=== PATIENT | female | born 1950 | race Caucasian/White ===

== ENCOUNTER 2019-10-02 06:45 | Emergency (ER) | payer MEDICARE, BC, SELFPAY ==
--- NOTE | 2019-10-02 06:50 | ED_ITS ---
HPI - General Adult General: Chief complaint: Syncope Stated complaint: SYNCOPE, AND N/V Time Seen by Provider: 10/02/19 06:49 History of Present Illness: HPI narrative: 69-year-old female presents to the emergency room with complaints of syncope with nausea and vomiting. She is also had some loose stools. She denies any fever she has been a little bit short of breath but is been typical for her and has not changed significantly denies any chest pain denies any dysuria urgency or frequency no hematochezia melena hematemesis coffee-ground emesis patient is a history of amyloidosis sees a specialist at [facility]. She had a syncopal episode yesterday. Has no known history of coronary artery disease or diabetes. Onset (ago): day(s) Severity: moderate Associated symptoms: Reports dyspnea; Deny chest pain, malaise, nausea, rash or vomiting Review of Systems Const: Denies: fever, chills, body aches, change in appetite, fatigue or malaise ENMT: Denies: throat pain, ear pain, nasal discharge or nasal congestion Card: Reports: shortness of breath when lying down; Denies: chest pain, edema or shortness of breath on exertion Resp: Reports: shortness of breath; Denies: productive cough or non-productive cough GI: Denies: abdominal pain, nausea, vomiting, vomiting blood, coffee grounds in vomit, diarrhea, constipation, bloating, blood in stool or black tarry stool : Denies: flank pain, difficulty urinating, painful urination, urinary frequency or urinary urgency Skin/Breast: Denies: rash or itching PFSH ED PFSH: Social History Smoking and tobacco status: never smoked Physical Exam Const: COMMON NORMALS: no apparent distress GENERAL APPEARANCE: cooperative and comfortable ORIENTATION/CONSCIOUSNESS: Yes awake, Yes oriented to person, Yes oriented to place and Yes oriented to time HENMT: COMMON NORMALS: normocephalic, head/scalp atraumatic, hearing grossly normal bilaterally, external ears normal, EAC's normal, TM's normal bilaterally, nasal mucous membranes and turbinates normal, moist oral mucous membranes and oropharynx normal HEAD & SCALP: normocephalic and atraumatic NOSE: nasal mucous membranes and turbinates normal EXTERNAL EAR: Yes external ears normal EXTERNAL AUDITORY CANAL: EAC's normal TYMPANIC MEMBRANE: TM's normal bilaterally Eye: COMMON NORMALS: PERRL, EOMs intact bilaterally, conjunctivae normal and no scleral icterus CONJUNCTIVA: Yes conjunctivae normal PUPIL: Yes PERRL Neck/C-Spine: COMMON NORMALS: full ROM, no lymphadenopathy, supple and no JVD Lymph: LYMPHATIC: no lymphadenopathy noted and no lymphedema noted Resp: COMMON NORMALS: normal respiratory effort, no retractions, no use of accessory muscles and clear to auscultation bilaterally AUSCULTATION: clear to auscultation bilaterally Cardio: COMMON NORMALS: no JVD, regular rate, regular rhythm and no murmurs RATE: regular rate RHYTHM: regular rhythm GI: COMMON NORMALS: soft to palpation and no hepatosplenomegaly AUSCULTATION: Yes normoactive bowel sounds PALPATION: Yes soft, No tender, No guarding and Yes no hepatosplenomegaly Extremity: COMMON NORMALS: normal to inspection, normal capillary refill, no clubbing, cyanosis or edema, no calf tenderness and no pedal edema Neuro: SENSORIUM/ORIENTATION: Yes oriented to person, Yes oriented to place and Yes oriented to time Skin: COMMON NORMALS: no rashes or lesions noted GENERAL SKIN EXAM: no rashes or lesions noted Course ED course: Reviewed findings with the patient. She denied having any chest pain during any of these episodes. She has had this before in the past. She does have some mild amyloidosis with fluids she felt much better will go ahead and discharge her home follow-up with her primary care doctor she has any worsening problems or recurrence return to the emergency room. Vital Signs: Vital signs: Vital Signs Temperature 97.7 F 10/02/19 08:43 Pulse Rate 76 10/02/19 08:43 Respiratory Rate 20 H 10/02/19 08:43 Blood Pressure 91/56 10/02/19 08:43 Pulse Oximetry 96 10/02/19 08:43 MDM - General Adult Lab Data: Labs: Lab Results 10/02/19 10/02/19 10/02/19 Range/Units 06:54 06:54 06:54 WBC 6.9 (4.0-10.0) 10^3/ uL RBC 4.47 (4.1-5.3) 10^6/u L Hgb 13.0 (11.5-15.3) g/dL Hct 38.6 (37.0-47.0) % MCV 86.4 (81-99) fL MCH 29.1 (28.0-34.0) pg MCHC 33.7 (30.0-36.0) g/dL RDW 14.6 (12.1-15.1) % Plt Count 150 (130-400) 10^3/c mm MPV 9.6 (7.4-10.4) fL Neut % (Auto) 67.1 % Lymph % (Auto) 23.2 % [place] % (Auto) 7.4 % Eos % (Auto) 1.9 % Baso % (Auto) 0.1 % Neut # (Auto) 4.6 (1.8-7.7) 10^3/u L Lymph # (Auto) 1.6 (0.8-4.8) 10^3/u L [place] # (Auto) 0.5 (0.2-0.9) 10^3/u L Eos # (Auto) 0.1 (0.0-0.8) 10^3/u L Baso # (Auto) 0.0 (0.0-0.1) 10^3/u L Nucleated RBC % (a uto) 0 % Nucleated RBCs # 0.0 /100WBC Sodium 138 (136-145) mmol/L Potassium 4.6 (3.5-5.1) mmol/L Chloride 101 (98-107) mmol/L Carbon Dioxide 27 (22-29) mmol/L Anion Gap 14.6 (5-19) BUN 14 (8-23) mg/dL Creatinine 1.1 H (0.5-0.9) mg/dL GFR Calculation 49.2 L (90-130) mL/min Glucose 124 H (65-115) mg/dL Calcium 9.3 (8.5-10.5) mg/dL Total Bilirubin 0.5 (0.15-1.2) mg/dL AST 29 (0-32) U/L ALT 17 (0-33) U/L Alkaline Phosphata se 88 (35-105) IU/L Total Protein 6.9 (6.6-8.7) g/dL Albumin 3.6 (3.5-5.2) g/dL Globulin 3.3 (1.3-4.6) g/dL Urine Color (Yellow) Urine Appearance (CLEAR) Urine pH (5-7) Ur Specific Gravit y (1.005-1.030) Urine Protein (Negative) Urine Glucose (UA) (Normal) Urine Ketones (Negative) Urine Occult Blood (Negative) Urine Nitrate (Negative) Urine Bilirubin (NEGATIVE) Urine Urobilinogen (Negative) mg/dL Ur Leukocyte Lin ase (Negative) Serum Ketones Negative (Negative) 10/02/19 Range/Units 07:54 WBC (4.0-10.0) 10^3/ uL RBC (4.1-5.3) 10^6/u L Hgb (11.5-15.3) g/dL Hct (37.0-47.0) % MCV (81-99) fL MCH (28.0-34.0) pg MCHC (30.0-36.0) g/dL RDW (12.1-15.1) % Plt Count (130-400) 10^3/c mm MPV (7.4-10.4) fL Neut % (Auto) % Lymph % (Auto) % [place] % (Auto) % Eos % (Auto) % Baso % (Auto) % Neut # (Auto) (1.8-7.7) 10^3/u L Lymph # (Auto) (0.8-4.8) 10^3/u L [place] # (Auto) (0.2-0.9) 10^3/u L Eos # (Auto) (0.0-0.8) 10^3/u L Baso # (Auto) (0.0-0.1) 10^3/u L Nucleated RBC % (a uto) % Nucleated RBCs # /100WBC Sodium (136-145) mmol/L Potassium (3.5-5.1) mmol/L Chloride (98-107) mmol/L Carbon Dioxide (22-29) mmol/L Anion Gap (5-19) BUN (8-23) mg/dL Creatinine (0.5-0.9) mg/dL GFR Calculation (90-130) mL/min Glucose (65-115) mg/dL Calcium (8.5-10.5) mg/dL Total Bilirubin (0.15-1.2) mg/dL AST (0-32) U/L ALT (0-33) U/L Alkaline Phosphata se (35-105) IU/L Total Protein (6.6-8.7) g/dL Albumin (3.5-5.2) g/dL Globulin (1.3-4.6) g/dL Urine Color Yellow (Yellow) Urine Appearance Clear (CLEAR) Urine pH 5.0 (5-7) Ur Specific Gravit y 1.015 (1.005-1.030) Urine Protein Neg (Negative) Urine Glucose (UA) Norm (Normal) Urine Ketones Negative (Negative) Urine Occult Blood Neg (Negative) Urine Nitrate Negative (Negative) Urine Bilirubin Neg (NEGATIVE) Urine Urobilinogen Norm (Negative) mg/dL Ur Leukocyte Lin ase Negative (Negative) Serum Ketones (Negative) Discharge Plan Discharge Patient Disposition: Home, Self-Care Clinical Impression: Vasovagal syncope, Dehydration, mild, Amyloidosis Condition: Stable Prescriptions: No Action spironolactone 25 mg Tablet 25 mg PO DAILY RF: 0 Lasix 20 mg Tablet 20 mg PO DAILY RF: 0 Prilosec OTC 20 mg Tablet,Delayed Release (Dr/Ec) 20 mg PO DAILY RF: 0 Zyrtec 10 mg Capsule 10 mg PO DAILY RF: 0 levothyroxine 100 mcg Capsule 100 mcg PO DAILY RF: 0 Referrals: Uriel Joseph MD [Family Provider] - Discharge Diet: Advance as tolerated Discharge Activity: Increase activity as tolerated Activity Restrictions/Additional Instructions: Follow-up with your primary care doctor early next week return if has worsening problems. 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
[2019-10-02 06:54] VITALS: BP 124/79; PULSE 109; RESP 18; O2SAT 96; BMI 27.3
--- NOTE | 2019-10-02 06:54 | PC.NURSE ---
EKG done at 0650 and shown to ER doctor
--- NOTE | 2019-10-02 06:58 | ECG_ITS ---
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 [email or web address]
[2019-10-02 07:07] LABS: Basophils % 0.1 %; Eosinophils # 0.1 10^3/uL (0.0-0.8); Eosinophils % 1.9 %; Hematocrit 38.6 % (37.0-47.0); Lymphocytes # 1.6 10^3/uL (0.8-4.8); Lymphocytes % 23.2 %; Mean Corpuscular HGB Conc 33.7 g/dL (30.0-36.0); Mean Corpuscular Hemoglobin 29.1 pg (28.0-34.0); Mean Corpuscular Volume 86.4 fL (81-99); Mean Platelet Volume 9.6 fL (7.4-10.4); Monocytes # 0.5 10^3/uL (0.2-0.9); Monocytes % 7.4 %; Neutrophils # 4.6 10^3/uL (1.8-7.7); Neutrophils % 67.1 %; Nucleated Red Blood Cells % 0 %; Platelet Count 150 10^3/cmm (130-400); Red Blood Count 4.47 10^6/uL (4.1-5.3); Red Cell Distribution Width 14.6 % (12.1-15.1); White Blood Count 6.9 10^3/uL (4.0-10.0)
[2019-10-02 07:15] LABS: Alanine Aminotransferase 17 U/L (0-33); Albumin Level 3.6 g/dL (3.5-5.2); Alkaline Phosphatase 88 IU/L (35-105); Anion Gap 14.6 (5-19); Aspartate Amino Transferase 29 U/L (0-32); Blood Urea Nitrogen 14 mg/dL (8-23); Calcium 9.3 mg/dL (8.5-10.5); Carbon Dioxide 27 mmol/L (22-29); Chloride 101 mmol/L (98-107); Creatinine Clr Calc Pharmacy 54.1007; Globulin 3.3 g/dL (1.3-4.6); Glomerular Filtration Rate 49.2 mL/min (90-130); Glucose 124 mg/dL (65-115); Potassium 4.6 mmol/L (3.5-5.1); Sodium 138 mmol/L (136-145); Total Bilirubin 0.5 mg/dL (0.15-1.2); Total Protein 6.9 g/dL (6.6-8.7)
[2019-10-02] MEDS: sodium chloride 0.9% 1,000 ML 999 ML IV (07:20)
[2019-10-02] MEDS: sodium chlor 0.9% + KCl 20 mEq 20 MEQ/1,000 ML BAG 125 MEQ IV (07:22)
[2019-10-02 08:09] LABS: Ketone (Acetest) Serum Negative (Negative)
[2019-10-02 08:18] LABS: Add Urine Microscopic? NO
[2019-10-02 08:20] LABS: Bilirubin Urine Neg (NEGATIVE); Blood Urine Neg (Negative); Glucose Urine UA Norm (Normal); Ketones Urine Negative (Negative); Leukocyte Esterase Urine Negative (Negative); Nitrate Urine Negative (Negative); Protein Urine Neg (Negative); Specific Gravity, Urine 1.015 (1.005-1.030); Urine Appearance Clear (CLEAR); Urine Color Yellow (Yellow); Urobilinogen Urine Norm (Negative)
[2019-10-02 08:43] VITALS: BP 91/56; PULSE 76; RESP 20; TEMP 36.5; O2SAT 96
== END 2019-10-02 08:46 | disposition home or self-care (01) ==
PROVIDERS: Emergency Provider Family Medicine; Family Provider Family Medicine
DX: R55 Syncope and collapse (principal); E86.0 Dehydration; E85.9 Amyloidosis, unspecified
CPT/HCPCS: 80053; 81003; 82009; 85025; 93005; 96360; 96365; 96366; 99282; 99284; J7030

== ENCOUNTER 2020-01-30 01:02 | Emergency (ER) | payer MEDICARE, BC, SELFPAY ==
[2020-01-30 01:17] VITALS: BP 148/87; PULSE 89; RESP 18; O2SAT 97; BMI 25.1
[2020-01-30 01:31] LABS: Add Urine Microscopic? NO
[2020-01-30 01:42] LABS: Bilirubin Urine Neg (NEGATIVE); Blood Urine Neg (Negative); Glucose Urine UA Norm (Normal); Ketones Urine Negative (Negative); Leukocyte Esterase Urine Negative (Negative); Nitrate Urine Negative (Negative); Protein Urine Neg (Negative); Urine Appearance Clear (CLEAR); Urine Color Yellow (Yellow); Urobilinogen Urine Norm (Negative); pH Urine 5 (5-7)
[2020-01-30 01:49] LABS: Alanine Aminotransferase 15 U/L (0-33); Albumin Level 4.1 g/dL (3.5-5.2); Alkaline Phosphatase 76 IU/L (35-105); Aspartate Amino Transferase 26 U/L (0-32); Blood Urea Nitrogen 8 mg/dL (8-23); Calcium 9.1 mg/dL (8.5-10.5); Carbon Dioxide 26 mmol/L (22-29); Chloride 97 mmol/L (98-107); Globulin 2.6 g/dL (1.3-4.6); Glomerular Filtration Rate 71.1 mL/min (90-130); Glucose 114 mg/dL (65-115); Osmolality Calculated 277 mOsm/kg (285-295); Sodium 135 mmol/L (136-145); Total Bilirubin 0.5 mg/dL (0.15-1.2); Total Protein 6.7 g/dL (6.6-8.7)
[2020-01-30 01:55] LABS: Basophils % 0.5 %; Eosinophils % 0.7 %; Hematocrit 37.4 % (37.0-47.0); Hemoglobin 12.4 g/dL (11.5-15.3); Lymphocytes # 1.7 10^3/uL (0.8-4.8); Lymphocytes % 30.3 %; Mean Corpuscular HGB Conc 33.2 g/dL (30.0-36.0); Mean Corpuscular Hemoglobin 28.9 pg (28.0-34.0); Mean Corpuscular Volume 87.2 fL (81-99); Mean Platelet Volume 9.6 fL (7.4-10.4); Monocytes # 0.3 10^3/uL (0.2-0.9); Monocytes % 5.5 %; Neutrophils # 3.6 10^3/uL (1.8-7.7); Neutrophils % 62.6 %; Nucleated Red Blood Cells % 0 %; Platelet Count 178 10^3/cmm (130-400); Red Blood Count 4.29 10^6/uL (4.1-5.3); Red Cell Distribution Width 13.7 % (12.1-15.1); White Blood Count 5.7 10^3/uL (4.0-10.0)
[2020-01-30] MEDS: sodium chloride 0.9% 1,000 ML 999 ML IV ×2 (03:13→04:24)
[2020-01-30] MEDS: ondansetron 2 mg/ML SDV 2 mL 8 MG IVP (03:13)
[2020-01-30] MEDS: famotidine 20 mg/2 mL INJ IVP (03:13)
[2020-01-30 04:49] VITALS: BP 136/84; PULSE 16; RESP 78; O2SAT 96
[2020-01-30 04:51] VITALS: BP 118/62; PULSE 79; RESP 16; TEMP -8.8; TEMP 16; O2SAT 97
--- NOTE | 2020-01-31 02:23 | ED_ITS ---
HPI - Nausea/Vomiting/Diarrhea General: Chief complaint: Nausea/Vomiting/Diarrhea Stated complaint: N/V X 2 DAYS Time Seen by Provider: 01/30/20 02:41 History of Present Illness: HPI Narrative: 69-year-old female with a history of amyloidosis. She has been to [facility] for appointments at the [facility], and is on her way home to [place]. She is experienced multiple episodes of vomiting and diarrhea. She had multiple testing in [place] incl uding a colonoscopy and EGD. She is having no belly pain. No fever. She states I need a bag of fluid . MD elicited complaint: nausea, vomiting and diarrhea Onset (ago): hour(s) Description of vomiting: watery Associated nausea: Yes Associated abdominal pain: No Location of pain: None Radiation: other Exacerbating factors: eating Relieving factors: none Associated symtoms: Reports decreased urine output, dizziness and nausea; Denies altered mental status, anxiety, change in vision, chest pain, dysuria, epistaxis or fevers/chills Review of Systems Const: Denies: fever(s) or chills Eyes: Denies: change in vision or blurry vision ENMT: Denies: swelling of lips/tongue, change in hearing, epistaxis, post nasal drip or sinus pain Card: Denies: chest pain Resp: Denies: dyspnea, productive cough, non-productive cough or wheezing GI: Reports: nausea : Denies: dysuria, urinary frequency, urinary urgency or hematuria Musc: Denies: neck pain, back pain, joint redness or joint warmth Skin/Breast: Denies: rash, pruritus or erythema Neuro: Reports: dizziness Psych: Denies: anxiety PFSH ED PFSH: Social History Smoking and tobacco status: never smoked Physical Exam Const: EXAM LIMITATIONS: no altered mental status GENERAL APPEARANCE: well developed ORIENTATION/CONSCIOUSNESS: Yes oriented to person, Yes oriented to place and Yes oriented to time HENMT: COMMON NORMALS: normocephalic, external ears normal and Normal external nose present HEAD & SCALP: normocephalic FACE & SINUS: normal facial exam NOSE: Normal external nose present and No nasal discharge present EXTERNAL EAR: Yes external ears normal MOUTH: tongue normal TEETH & GINGIVA: no abnormal tooth and associated gingiva THROAT: posterior oropharynx normal; no peritonsillar mass Eye: COMMON NORMALS: Equal, round and reactive pupils present, EOMs intact bilaterally and conjunctivae normal EYELID: eyelids normal CONJUNCTIVA: Yes conjunctivae normal PUPIL: Yes Equal, round and reactive pupils present Neck/C-Spine: COMMON NORMALS: full ROM GENERAL: No tracheal deviation Chest: COMMONS NORMALS: normal inspection of the chest CHEST: No tenderness Resp: COMMON NORMALS: clear to auscultation bilaterally EFFORT & INSPECTION: No tachypneic, No respiratory distress, No retractions, No uses accessory muscles and No tracheal deviation AUSCULTATION: clear to auscultation bilaterally, no rhonchi, no wheezes and lung sounds not diminished Cardio: COMMON NORMALS: regular rate and regular rhythm RATE: regular rate RHYTHM: regular rhythm HEART SOUNDS: no murmurs PERIPHERAL PULSES: radial pulses present GI: INSPECTION: No abdominal distension AUSCULTATION: No Hyperactive bowel sounds present and No Hypoactive bowel sounds present PALPATION: No Guarding due to palpation present (GI) and No Rigid due to palpation PERCUSSION: no dullness to percussion and no tympanic to percussion Neuro: SENSORIUM/ORIENTATION: Yes oriented to person, Yes oriented to place and Yes oriented to time Psych: COMMON NORMALS: mental status grossly normal Skin: COMMON NORMALS: no rashes or lesions noted GENERAL SKIN EXAM: no rashes or lesions noted Course Vital Signs: Vital signs: Vital Signs Temperature 16 F L 01/30/20 04:51 Pulse Rate 79 01/30/20 04:51 Respiratory Rate 16 01/30/20 04:51 Blood Pressure 118/62 01/30/20 04:51 Pulse Oximetry 97 01/30/20 04:51 MDM - Nausea/Vomiting/Diarrhea MDM Narrative: Medical decision making narrative: Patient received 2 L of fluid and antiemetics in the ER. She felt significantly better. Her laboratory was not overly abnormal. She did appear clinically dehydrated. She will go home on Zofran for nausea and close follow-up with her physician. Lab Data: Labs: Lab Results 01/30/20 01/30/20 01/30/20 Range/Units 01:10 01:25 01:25 WBC 5.7 (4.0-10.0) 10^3/ uL RBC 4.29 (4.1-5.3) 10^6/u L Hgb 12.4 (11.5-15.3) g/dL Hct 37.4 (37.0-47.0) % MCV 87.2 (81-99) fL MCH 28.9 (28.0-34.0) pg MCHC 33.2 (30.0-36.0) g/dL RDW 13.7 (12.1-15.1) % Plt Count 178 (130-400) 10^3/c mm MPV 9.6 (7.4-10.4) fL Neut % (Auto) 62.6 % Lymph % (Auto) 30.3 % [place] % (Auto) 5.5 % Eos % (Auto) 0.7 % Baso % (Auto) 0.5 % Neut # (Auto) 3.6 (1.8-7.7) 10^3/u L Lymph # (Auto) 1.7 (0.8-4.8) 10^3/u L [place] # (Auto) 0.3 (0.2-0.9) 10^3/u L Eos # (Auto) 0.0 (0.0-0.8) 10^3/u L Baso # (Auto) 0.0 (0.0-0.1) 10^3/u L Nucleated RBC % (a uto) 0 % Nucleated RBCs # 0.0 /100WBC Sodium 135 L (136-145) mmol/L Potassium 4.0 (3.5-5.1) mmol/L Chloride 97 L (98-107) mmol/L Carbon Dioxide 26 (22-29) mmol/L Anion Gap 16.0 (5-19) BUN 8 (8-23) mg/dL Creatinine 0.8 (0.5-0.9) mg/dL GFR Calculation 71.1 L (90-130) mL/min Glucose 114 (65-115) mg/dL Calculated Osmolal ity 277 L (285-295) mOsm/k g Calcium 9.1 (8.5-10.5) mg/dL Total Bilirubin 0.5 (0.15-1.2) mg/dL AST 26 (0-32) U/L ALT 15 (0-33) U/L Alkaline Phosphata se 76 (35-105) IU/L Total Protein 6.7 (6.6-8.7) g/dL Albumin 4.1 (3.5-5.2) g/dL Globulin 2.6 (1.3-4.6) g/dL Urine Color Yellow (Yellow) Urine Appearance Clear (CLEAR) Urine pH 5 (5-7) Ur Specific Gravit y 1.010 (1.005-1.030) Urine Protein Neg (Negative) Urine Glucose (UA) Norm (Normal) Urine Ketones Negative (Negative) Urine Blood Neg (Negative) Urine Nitrate Negative (Negative) Urine Bilirubin Neg (NEGATIVE) Urine Urobilinogen Norm (Negative) mg/dL Ur Leukocyte Lin ase Negative (Negative) Discharge Plan Discharge Patient Disposition: Home, Self-Care Clinical Impression: Vomiting Qualifiers: Vomiting type: unspecified Vomiting Intractability: intractable Nausea presence: with nausea Qualified Code(s): R11.2 - Nausea with vomiting, unspecified Condition: Stable Prescriptions: New Zofran 4 mg tablet 4 mg PO Q6H PRN (Reason: nausea and vomiting) Qty: 10 RF: 0 No Action spironolactone 25 mg Tablet 25 mg PO DAILY RF: 0 Lasix 20 mg Tablet 20 mg PO DAILY RF: 0 Prilosec OTC 20 mg Tablet,Delayed Release (Dr/Ec) 20 mg PO DAILY RF: 0 Zyrtec 10 mg Capsule 10 mg PO DAILY RF: 0 levothyroxine 100 mcg Capsule 100 mcg PO DAILY RF: 0 Discharge Orders: Discharge Order (Routine); Ordered 01/30/20 Ordered By: Carlitos King Referrals: Uriel Joseph MD [Primary Care Provider] - 4-7 days Discharge Diet: Advance as tolerated and Clear Liquid Discharge Activity: Increase activity as tolerated Patient Instructions: Acute Nausea and Vomiting (ED) Activity Restrictions/Additional Instructions: Return for fever, increasing belly pain, vomiting liquids or medications despite treatment, other concerning symptoms. 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
== END 2020-01-30 05:01 | disposition home or self-care (01) ==
PROVIDERS: Emergency Provider Emergency Medicine; PCP Family Medicine
DX: R11.2 Nausea with vomiting, unspecified (principal)
CPT/HCPCS: 12345; 80053; 81003; 85025; 96361; 96374; 96375; 99283; A9270; J2405; J3490; J7030

== ENCOUNTER 2020-08-06 04:08 | Inpatient (IN) | payer MEDICARE, BC, SELFPAY ==
[2020-08-06] VITALS (16 sets, daily range): BP systolic 126–166; BP diastolic 75–123; PULSE 73–102; RESP 13–27; TEMP 36.3–37.2; O2SAT 91–100; BMI 25.0
--- NOTE | 2020-08-06 04:46 | PC.NURSE ---
Pt tossing back and forth in the bed. Unable to stay still secondary to abdominal pain and I need to help per pt
--- NOTE | 2020-08-06 05:00 | XRR_ITS ---
PROCEDURE INFORMATION: Exam: XR Chest, 1 View Exam date and time: 08/06/2020 5:04 AM Age: 70 years old Clinical indication: Patient HX: Possible medication reaction. Intractable n/v. ; Additional info: Vomiting TECHNIQUE: Imaging protocol: XR of the chest Views: 1 view. COMPARISON: No relevant prior studies available. FINDINGS: Lungs: Few infiltrates are seen in the right base. No consolidation. Pleural space: Unremarkable. No pleural effusion. No pneumothorax. Heart/Mediastinum: Cardiomegaly is present. Bones/joints: Unremarkable. XR/XR chest 1V portable [id number] IMPRESSION: Cardiomegaly is present. Few infiltrates are seen in the right base.
[2020-08-06] MEDS: sodium chloride 0.9% 1,000 ML 999 ML IV ×3 (05:14→08:06)
[2020-08-06] MEDS: ondansetron 2 mg/ML SDV 2 mL 8 MG IVP (05:15)
[2020-08-06 05:19] LABS: Basophils % 0.3 %; Eosinophils # 0.1 10^3/uL (0.0-0.8); Eosinophils % 0.5 %; Hematocrit 40.4 % (37.0-47.0); Hemoglobin 13.6 g/dL (11.5-15.3); Lymphocytes # 1.6 10^3/uL (0.8-4.8); Lymphocytes % 17.5 %; Mean Corpuscular HGB Conc 33.7 g/dL (30.0-36.0); Mean Corpuscular Hemoglobin 29.3 pg (28.0-34.0); Mean Corpuscular Volume 87.1 fL (81-99); Mean Platelet Volume 10.4 fL (7.4-10.4); Monocytes # 0.5 10^3/uL (0.2-0.9); Monocytes % 5.3 %; Neutrophils # 6.99 10^3/uL (1.8-7.7); Neutrophils % 76.1 %; Nucleated Red Blood Cells % 0 %; Platelet Count 160 10^3/cmm (130-400); Red Blood Count 4.64 10^6/uL (4.1-5.3); Red Cell Distribution Width 15.1 % (12.1-15.1); White Blood Count 9.2 10^3/uL (4.0-10.0)
--- NOTE | 2020-08-06 05:20 | PC.NURSE ---
pt to [facility] unable to void. Daughter at bedside. Helping pt relax and control impulsive behavior
[2020-08-06 05:23] LABS: Troponin(5th) Baseline 28 ng/L (0-10)
--- NOTE | 2020-08-06 05:25 | ED_ITS ---
Documented by User: Tete Marley 08/06/20 05:30 HPI - Nausea/Vomiting/Diarrhea General: Chief complaint: Nausea/Vomiting/Diarrhea Stated complaint: n/v/ allergic reaction Time Seen by Provider: 08/06/20 04:55 Source: patient, family and EMS Mode of arrival: EMS Limitations: no limitations History of Present Illness: HPI Narrative: Chrissy is a very nice 70-year-old female who comes in with a complaint of nausea and vomiting. Patient's daughter is present who gives the most history. She states her mother has a history of amyloidosis and has to get a [place] shot for this once a week out of [place]. She is had this in the past but did not tolerate it well and so she had to stop. They are trying this medicine again but she is having the same reaction that she is had before but this time more severe. Patient has had numerous episodes of vomiting to the point she is now just dry heaving. She has not had any diarrhea. She does have abdominal pain which she describes mostly as just diffuse discomfort and nausea. She denies headache, neck pain, chest pain, shortness of breath, back pain, flank pain, urinary symptoms, extremity pain or skin rashes. The patient's daughter says she has had this symptoms numerous times in the past. She states she is had to come here to the ER to get IV fluids, nausea medication before she can feel relief and is ready to go home. They have not tried anything at home for this and they are unaware of anything that makes her symptoms better or worse. Associated nausea: Yes Associated symtoms: Reports nausea; Denies change in vision, chest pain, diaphoresis, dizziness, dysuria, fatigue, headache(s), malaise, palpitations or syncope Review of Systems Const: Denies: fever(s), chills, body aches, fatigue, malaise or diaphoresis Eyes: Denies: change in vision, blurry vision, photophobia, eye discomfort, eye discharge, eye redness or yellow eyes ENMT: Denies: throat pain, odynophagia, hoarseness, swelling of lips/tongue, ear or mastoid pain, ear discharge, change in hearing or nasal discharge Card: Denies: chest pain, palpitations, irregular heart rhythm, edema, lightheadedness, syncope, pre-syncope, dyspnea on exertion or orthopnea Resp: Denies: dyspnea, productive cough, non-productive cough, wheezing, hemoptysis or chest congestion GI: Reports: abdominal pain, nausea and vomiting; Denies: hematemesis, coffee ground emesis, heartburn, diarrhea, constipation, GI cramping, hematochezia or melena : Denies: flank pain, dysuria, urinary frequency, urinary urgency or hematuria Musc: Denies: neck pain, back pain, extremity pain, extremity swelling, joint pain, joint swelling, joint redness, joint warmth or joint stiffness Skin/Breast: Denies: rash, pruritus, erythema, skin pain or skin tenderness Neuro: Denies: headache(s), numbness in extremities, weakness in extremities, sensory changes, lack of coordination, difficulty walking, dizziness, vertigo, confusion, Slurred speech present or seizure-like activity Jesus/Lymph: Denies: easy bruising, easy bleeding, petechiae, purpura or enlarged lymph nodes All/Imm: Denies: urticaria, throat swelling, tongue swelling, facial swelling or acute wheezing PFSH ED PFSH: Medical History Amyloidosis GERD (gastroesophageal reflux disease) Hypertension Hypothyroidism Surgical History Hx of cholecystectomy Family History Sister Amyloidosis Social History Smoking and tobacco status: never smoked Physical Exam Const: COMMON NORMALS: no acute distress, patient oriented x3, no limitations and alert GENERAL APPEARANCE: cooperative HENMT: COMMON NORMALS: normocephalic, atraumatic, external ears normal, EAC's normal and Normal external nose present HEAD & SCALP: normal to inspection, normocephalic and atraumatic FACE & SINUS: normal facial exam and face symmetric NOSE: Normal external nose present and Normal nares present EXTERNAL EAR: Yes external ears normal EXTERNAL AUDITORY CANAL: EAC's normal MOUTH: Normal oral and palatal mucosa present, lip normal and tongue normal Eye: COMMON NORMALS: Equal, round and reactive pupils present and conjunctivae normal GENERAL EYE: appearance normal, both eyes and all related structures ALIGNMENT: Yes alignment normal PERIORBITAL: periorbital findings normal EYELID: eyelids normal CONJUNCTIVA: Yes conjunctivae normal SCLERA: sclerae normal PUPIL: Yes Equal, round and reactive pupils present Neck/C-Spine: COMMON NORMALS: full ROM, no lymphadenopathy, supple, no meningeal signs and no JVD GENERAL: Yes normal visual inspection and Yes trachea midline Chest: COMMONS NORMALS: normal inspection of the chest and normal palpation of entire chest wall Resp: COMMON NORMALS: normal respiratory effort, No retractions, No use of accessory muscles and clear to auscultation bilaterally EFFORT & INSPECTION: Yes able to speak in complete sentences and Yes symmetric chest movement AUSCULTATION: clear to auscultation bilaterally, no crackles, no rales, no rhonchi and no wheezes Cardio: COMMON NORMALS: no JVD, regular rate, regular rhythm, S1 normal heart sound present and S2 normal heart sound present RATE: regular rate RHYTHM: regular rhythm HEART SOUNDS: S1 normal heart sound present, S2 normal heart sound present, no click, no gallops, no murmurs and no rubs GI: COMMON NORMALS: Soft to palpation and No hepatosplenomegaly present PALPATION: Yes Soft to palpation, No Tenderness to palpation present (GI), No Guarding due to palpation present (GI), No Rigid due to palpation, Yes No hepatosplenomegaly present, No Hernia present, No Palpable mass present and No Pulsatile mass present : COMMON NORMALS: Yes no CVA tenderness BLADDER/KIDNEY EXAM: Yes no CVA tenderness EXTERNAL FEMALE EXAM: No Hernia present Back/Pelvis: COMMON NORMALS: no CVA tenderness, thoracic and lumbar spine normal to inspection, no thoracic nor lumbar tenderness and thoraco-lumbar ROM normal Extremity: COMMON NORMALS: normal to inspection, full ROM, capillary refill normal, no joint enlargement, no clubbing, cyanosis or edema and no calf tenderness Neuro: COMMON NORMALS: patient oriented x3, CN's II-XII intact bilaterally, moves all extremities, no focal motor deficits and no sensory deficits noted SENSORIUM/ORIENTATION: Yes alert MENINGEAL SIGNS: Yes no meningeal signs SPEECH: speech normal Psych: COMMON NORMALS: mental status grossly normal, Normal thought process present, cooperative, normal affect, speech normal and activity/motor behavior normal SPEECH: Yes normal speech THOUGHT PROCESS: Normal thought process present Skin: COMMON NORMALS: no rashes or lesions noted, turgor normal, no jaundice, no petechiae and no mottling GENERAL SKIN EXAM: no rashes or lesions noted and turgor normal Course Vital Signs: Vital signs: Vital Signs Temperature 98.1 F 08/06/20 12:00 Pulse Rate 80 08/06/20 12:00 Respiratory Rate 18 08/06/20 12:00 Blood Pressure 149/78 08/06/20 12:00 Pulse Oximetry 96 08/06/20 12:00 MDM - Nausea/Vomiting/Diarrhea Lab Data: Labs: Lab Results 08/06/20 08/06/20 08/06/20 Range/Units 04:25 04:25 04:25 WBC 9.2 (4.0-10.0) 10^3/ uL RBC 4.64 (4.1-5.3) 10^6/u L Hgb 13.6 (11.5-15.3) g/dL Hct 40.4 (37.0-47.0) % MCV 87.1 (81-99) fL MCH 29.3 (28.0-34.0) pg MCHC 33.7 (30.0-36.0) g/dL RDW 15.1 (12.1-15.1) % Plt Count 160 (130-400) 10^3/c mm MPV 10.4 (7.4-10.4) fL Neut % (Auto) 76.1 % Lymph % (Auto) 17.5 % Gray % (Auto) 5.3 % Eos % (Auto) 0.5 % Baso % (Auto) 0.3 % Neut # (Auto) 6.99 (1.8-7.7) 10^3/u L Lymph # (Auto) 1.6 (0.8-4.8) 10^3/u L Gray # (Auto) 0.5 (0.2-0.9) 10^3/u L Eos # (Auto) 0.1 (0.0-0.8) 10^3/u L Baso # (Auto) 0.0 (0.0-0.1) 10^3/u L Nucleated RBC % (a uto) 0 % Nucleated RBCs # 0.0 /100WBC Specimen Type Sample Site ABG pH (7.35-7.45) ABG pCO2 (35-45) mmHg ABG pO2 (80.0-100.0) mmH g ABG HCO3 (22-26) mmol/L ABG O2 Saturation ABG Base Excess (-2.0-2.0) mmol/ L Akil Test A-a O2 Gradient (5-10) mmHg Hematocrit (37-47) % Hgb O2 Saturation (95-100) % Carboxyhemoglobin (0.4-20.1) %THgb Methemoglobin (0.4-1.5) % Total Hemoglobin (12-16) g/dL Ionized Calcium (1.1-1.4) mmol/L O2 Delivery Device O2 Liters/Min % FiO2 % [employer] ID Sodium 137 (136-145) mmol/L Potassium 3.5 (3.5-5.1) mmol/L Chloride 100 (98-107) mmol/L Carbon Dioxide 21 L (22-29) mmol/L Anion Gap 19.5 H (5-19) BUN 11 (8-23) mg/dL Creatinine 0.9 (0.5-0.9) mg/dL GFR Calculation 61.9 L (90-130) mL/min Glucose 171 H (65-115) mg/dL Calculated Osmolal ity 287 (285-295) mOsm/k g Calcium 9.4 (8.5-10.5) mg/dL Magnesium 1.8 (1.7-2.3) mg/dL Total Bilirubin 1.3 H (0.15-1.2) mg/dL AST 34 H (0-32) U/L ALT 26 (0-33) U/L Alkaline Phosphata se 125 H (35-105) IU/L Lactate Dehydrogen ase (135-214) U/L Creatine Kinase (26-192) U/L Troponin T Baselin e 28 H (0-10) ng/L Troponin T 120 Min [place] (0-10) ng/L Delta Troponin T (0-10) ABS# C-Reactive Protein (0.0-4.9) mg/L Total Protein 6.5 L (6.6-8.7) g/dL Albumin 4.5 (3.5-5.2) g/dL Globulin 2.0 (1.3-4.6) g/dL Lipase 19 (13-60) U/L Procalcitonin (0-0.5) ng/mL TSH (0.27-4.20) uIU/ mL Urine Color (Yellow) Urine Appearance (CLEAR) Urine pH (5-7) Ur Specific Gravit y (1.005-1.030) Urine Protein (Negative) Urine Glucose (UA) (Normal) Urine Ketones (Negative) Urine Blood (Negative) Urine Nitrate (Negative) Urine Bilirubin (Negative) Prot Sulfosalicyli c Acd (Negative) Urine Urobilinogen (Negative) mg/dL Ur Leukocyte Lin ase (Negative) Urine RBC (0-2) /hpf Urine WBC (0-5) /hpf Ur Squamous Epith Cells (0-5) /hpf Amorphous Sediment Urine Bacteria (NONE) /hpf Urine Mucus /hpf 08/06/20 08/06/20 08/06/20 Range/Units 04:25 07:25 08:52 WBC (4.0-10.0) 10^3/ uL RBC (4.1-5.3) 10^6/u L Hgb (11.5-15.3) g/dL Hct (37.0-47.0) % MCV (81-99) fL MCH (28.0-34.0) pg MCHC (30.0-36.0) g/dL RDW (12.1-15.1) % Plt Count (130-400) 10^3/c mm MPV (7.4-10.4) fL Neut % (Auto) % Lymph % (Auto) % Gray % (Auto) % Eos % (Auto) % Baso % (Auto) % Neut # (Auto) (1.8-7.7) 10^3/u L Lymph # (Auto) (0.8-4.8) 10^3/u L Gray # (Auto) (0.2-0.9) 10^3/u L Eos # (Auto) (0.0-0.8) 10^3/u L Baso # (Auto) (0.0-0.1) 10^3/u L Nucleated RBC % (a uto) % Nucleated RBCs # /100WBC Specimen Type Arterial Sample Site Brachial, right ABG pH 7.41 (7.35-7.45) ABG pCO2 34.6 L (35-45) mmHg ABG pO2 185.0 H (80.0-100.0) mmH g ABG HCO3 22.1 (22-26) mmol/L ABG O2 Saturation 99.9 ABG Base Excess -1.9 (-2.0-2.0) mmol/ L Akil Test N/a A-a O2 Gradient 3.4 L (5-10) mmHg Hematocrit 39.9 (37-47) % Hgb O2 Saturation 98.3 (95-100) % Carboxyhemoglobin 0.8 (0.4-20.1) %THgb Methemoglobin 0.8 (0.4-1.5) % Total Hemoglobin 13.0 (12-16) g/dL Ionized Calcium 1.0 L (1.1-1.4) mmol/L O2 Delivery Device Nc O2 Liters/Min 4.0 % FiO2 36.0 % [employer] ID Gd Sodium 140.0 (136-145) mmol/L Potassium 3.6 (3.5-5.1) mmol/L Chloride (98-107) mmol/L Carbon Dioxide (22-29) mmol/L Anion Gap (5-19) BUN (8-23) mg/dL Creatinine (0.5-0.9) mg/dL GFR Calculation (90-130) mL/min Glucose 161.0 H (65-115) mg/dL Calculated Osmolal ity (285-295) mOsm/k g Calcium (8.5-10.5) mg/dL Magnesium (1.7-2.3) mg/dL Total Bilirubin (0.15-1.2) mg/dL AST (0-32) U/L ALT (0-33) U/L Alkaline Phosphata se (35-105) IU/L Lactate Dehydrogen ase 289 H (135-214) U/L Creatine Kinase 210 H (26-192) U/L Troponin T Baselin e (0-10) ng/L Troponin T 120 Min [place] 22.23 H (0-10) ng/L Delta Troponin T -5.77 L (0-10) ABS# C-Reactive Protein 5.4 H (0.0-4.9) mg/L Total Protein (6.6-8.7) g/dL Albumin (3.5-5.2) g/dL Globulin (1.3-4.6) g/dL Lipase (13-60) U/L Procalcitonin 0.13 (0-0.5) ng/mL TSH 3.15 (0.27-4.20) uIU/ mL Urine Color (Yellow) Urine Appearance (CLEAR) Urine pH (5-7) Ur Specific Gravit y (1.005-1.030) Urine Protein (Negative) Urine Glucose (UA) (Normal) Urine Ketones (Negative) Urine Blood (Negative) Urine Nitrate (Negative) Urine Bilirubin (Negative) Prot Sulfosalicyli c Acd (Negative) Urine Urobilinogen (Negative) mg/dL Ur Leukocyte Lin ase (Negative) Urine RBC (0-2) /hpf Urine WBC (0-5) /hpf Ur Squamous Epith Cells (0-5) /hpf Amorphous Sediment Urine Bacteria (NONE) /hpf Urine Mucus /hpf 08/06/20 Range/Units 09:08 WBC (4.0-10.0) 10^3/ uL RBC (4.1-5.3) 10^6/u L Hgb (11.5-15.3) g/dL Hct (37.0-47.0) % MCV (81-99) fL MCH (28.0-34.0) pg MCHC (30.0-36.0) g/dL RDW (12.1-15.1) % Plt Count (130-400) 10^3/c mm MPV (7.4-10.4) fL Neut % (Auto) % Lymph % (Auto) % Gray % (Auto) % Eos % (Auto) % Baso % (Auto) % Neut # (Auto) (1.8-7.7) 10^3/u L Lymph # (Auto) (0.8-4.8) 10^3/u L Gray # (Auto) (0.2-0.9) 10^3/u L Eos # (Auto) (0.0-0.8) 10^3/u L Baso # (Auto) (0.0-0.1) 10^3/u L Nucleated RBC % (a uto) % Nucleated RBCs # /100WBC Specimen Type Sample Site ABG pH (7.35-7.45) ABG pCO2 (35-45) mmHg ABG pO2 (80.0-100.0) mmH g ABG HCO3 (22-26) mmol/L ABG O2 Saturation ABG Base Excess (-2.0-2.0) mmol/ L Akil Test A-a O2 Gradient (5-10) mmHg Hematocrit (37-47) % Hgb O2 Saturation (95-100) % Carboxyhemoglobin (0.4-20.1) %THgb Methemoglobin (0.4-1.5) % Total Hemoglobin (12-16) g/dL Ionized Calcium (1.1-1.4) mmol/L O2 Delivery Device O2 Liters/Min % FiO2 % [employer] ID Sodium (136-145) mmol/L Potassium (3.5-5.1) mmol/L Chloride (98-107) mmol/L Carbon Dioxide (22-29) mmol/L Anion Gap (5-19) BUN (8-23) mg/dL Creatinine (0.5-0.9) mg/dL GFR Calculation (90-130) mL/min Glucose (65-115) mg/dL Calculated Osmolal ity (285-295) mOsm/k g Calcium (8.5-10.5) mg/dL Magnesium (1.7-2.3) mg/dL Total Bilirubin (0.15-1.2) mg/dL AST (0-32) U/L ALT (0-33) U/L Alkaline Phosphata se (35-105) IU/L Lactate Dehydrogen ase (135-214) U/L Creatine Kinase (26-192) U/L Troponin T Baselin e (0-10) ng/L Troponin T 120 Min [place] (0-10) ng/L Delta Troponin T (0-10) ABS# C-Reactive Protein (0.0-4.9) mg/L Total Protein (6.6-8.7) g/dL Albumin (3.5-5.2) g/dL Globulin (1.3-4.6) g/dL Lipase (13-60) U/L Procalcitonin (0-0.5) ng/mL TSH (0.27-4.20) uIU/ mL Urine Color Straw (Yellow) Urine Appearance Clear (CLEAR) Urine pH 8 H (5-7) Ur Specific Gravit y 1.010 (1.005-1.030) Urine Protein Neg (Negative) Urine Glucose (UA) Norm (Normal) Urine Ketones Negative (Negative) Urine Blood Neg (Negative) Urine Nitrate Negative (Negative) Urine Bilirubin Neg (Negative) Prot Sulfosalicyli c Acd Negative (Negative) Urine Urobilinogen Norm (Negative) mg/dL Ur Leukocyte Lin ase Negative (Negative) Urine RBC None (0-2) /hpf Urine WBC Rare (0-5) /hpf Ur Squamous Epith Cells Rare (0-5) /hpf Amorphous Sediment Not Reportable Urine Bacteria Trace (NONE) /hpf Urine Mucus 2+ /hpf EKG Data^: EKG 1: Attestation: I personally reviewed and interpreted this EKG as follows: EKG interpretation date: 08/06/20 EKG interpretation time: 04:36 Interpretation: Normal sinus rhythm at 74 beats a minute, first-degree AV block, interventricular conduction delay, left axis deviation, T waves inverted in aVL. No other acute ST-T wave changes. Discharge Plan Discharge Patient Disposition: Admitted As Inpatient Admit Provider: Corbin Bedolla Clinical Impression: Right lower lobe pneumonia, Dehydration, Altered mental status, Drug-induced nausea and vomiting Condition: Stable Sign Out Sign Out Data: Patient Sign Out occurred on 08/06/20 at 06:57. Patient's care was discussed, and care was transferred from Tete Marley to Yayo Delgado DO. Sign Out Comment: Case turned over to Dr. Delgado at change of shift. Last updated by Tete Marley at 08/06/20 05:45 Coding Level of Care Code ED Marriage And Family Teacher for Chg Fwd Exam Comprehensive Documented by User: Yayo Delgado DO 08/06/20 14:45 HPI - Nausea/Vomiting/Diarrhea General: Chief complaint: Nausea/Vomiting/Diarrhea Stated complaint: n/v/ allergic reaction Time Seen by Provider: 08/06/20 04:55 PFSH ED PFSH: Medical History Amyloidosis GERD (gastroesophageal reflux disease) Hypertension Hypothyroidism Surgical History Hx of cholecystectomy Family History Sister Amyloidosis Social History Smoking and tobacco status: never smoked Course Vital Signs: Vital signs: Vital Signs Temperature 98.1 F 08/06/20 12:00 Pulse Rate 80 08/06/20 12:00 Respiratory Rate 18 08/06/20 12:00 Blood Pressure 149/78 08/06/20 12:00 Pulse Oximetry 96 08/06/20 12:00 MDM - Nausea/Vomiting/Diarrhea MDM Narrative: Medical decision making narrative: . Care assumed at change of shift. Patient has a pneumonia as well as protracted nausea and vomiting. Nausea vomiting improved with Ativan however it did make her somewhat sedate and had some positional hypoxemia which resolved with oxygen supplementation and repositioning. Family reports she snores a lot at night and they think she probably does have sleep apnea. We will go ahead and admit her for repeat of the pneumonia and monitoring her oxygen's saturation she will continue to require oxygen supplementation. Lab Data: Labs: Lab Results 08/06/20 08/06/20 08/06/20 Range/Units 04:25 04:25 04:25 WBC 9.2 (4.0-10.0) 10^3/ uL RBC 4.64 (4.1-5.3) 10^6/u L Hgb 13.6 (11.5-15.3) g/dL Hct 40.4 (37.0-47.0) % MCV 87.1 (81-99) fL MCH 29.3 (28.0-34.0) pg MCHC 33.7 (30.0-36.0) g/dL RDW 15.1 (12.1-15.1) % Plt Count 160 (130-400) 10^3/c mm MPV 10.4 (7.4-10.4) fL Neut % (Auto) 76.1 % Lymph % (Auto) 17.5 % Gray % (Auto) 5.3 % Eos % (Auto) 0.5 % Baso % (Auto) 0.3 % Neut # (Auto) 6.99 (1.8-7.7) 10^3/u L Lymph # (Auto) 1.6 (0.8-4.8) 10^3/u L Gray # (Auto) 0.5 (0.2-0.9) 10^3/u L Eos # (Auto) 0.1 (0.0-0.8) 10^3/u L Baso # (Auto) 0.0 (0.0-0.1) 10^3/u L Nucleated RBC % (a uto) 0 % Nucleated RBCs # 0.0 /100WBC Specimen Type Sample Site ABG pH (7.35-7.45) ABG pCO2 (35-45) mmHg ABG pO2 (80.0-100.0) mmH g ABG HCO3 (22-26) mmol/L ABG O2 Saturation ABG Base Excess (-2.0-2.0) mmol/ L Akil Test A-a O2 Gradient (5-10) mmHg Hematocrit (37-47) % Hgb O2 Saturation (95-100) % Carboxyhemoglobin (0.4-20.1) %THgb Methemoglobin (0.4-1.5) % Total Hemoglobin (12-16) g/dL Ionized Calcium (1.1-1.4) mmol/L O2 Delivery Device O2 Liters/Min % FiO2 % [employer] ID Sodium 137 (136-145) mmol/L Potassium 3.5 (3.5-5.1) mmol/L Chloride 100 (98-107) mmol/L Carbon Dioxide 21 L (22-29) mmol/L Anion Gap 19.5 H (5-19) BUN 11 (8-23) mg/dL Creatinine 0.9 (0.5-0.9) mg/dL GFR Calculation 61.9 L (90-130) mL/min Glucose 171 H (65-115) mg/dL Calculated Osmolal ity 287 (285-295) mOsm/k g Calcium 9.4 (8.5-10.5) mg/dL Magnesium 1.8 (1.7-2.3) mg/dL Total Bilirubin 1.3 H (0.15-1.2) mg/dL AST 34 H (0-32) U/L ALT 26 (0-33) U/L Alkaline Phosphata se 125 H (35-105) IU/L Lactate Dehydrogen ase (135-214) U/L Creatine Kinase (26-192) U/L Troponin T Baselin e 28 H (0-10) ng/L Troponin T 120 Min [place] (0-10) ng/L Delta Troponin T (0-10) ABS# C-Reactive Protein (0.0-4.9) mg/L Total Protein 6.5 L (6.6-8.7) g/dL Albumin 4.5 (3.5-5.2) g/dL Globulin 2.0 (1.3-4.6) g/dL Lipase 19 (13-60) U/L Procalcitonin (0-0.5) ng/mL TSH (0.27-4.20) uIU/ mL Urine Color (Yellow) Urine Appearance (CLEAR) Urine pH (5-7) Ur Specific Gravit y (1.005-1.030) Urine Protein (Negative) Urine Glucose (UA) (Normal) Urine Ketones (Negative) Urine Blood (Negative) Urine Nitrate (Negative) Urine Bilirubin (Negative) Prot Sulfosalicyli c Acd (Negative) Urine Urobilinogen (Negative) mg/dL Ur Leukocyte Lin ase (Negative) Urine RBC (0-2) /hpf Urine WBC (0-5) /hpf Ur Squamous Epith Cells (0-5) /hpf Amorphous Sediment Urine Bacteria (NONE) /hpf Urine Mucus /hpf 08/06/20 08/06/20 08/06/20 Range/Units 04:25 07:25 08:52 WBC (4.0-10.0) 10^3/ uL RBC (4.1-5.3) 10^6/u L Hgb (11.5-15.3) g/dL Hct (37.0-47.0) % MCV (81-99) fL MCH (28.0-34.0) pg MCHC (30.0-36.0) g/dL RDW (12.1-15.1) % Plt Count (130-400) 10^3/c mm MPV (7.4-10.4) fL Neut % (Auto) % Lymph % (Auto) % Gray % (Auto) % Eos % (Auto) % Baso % (Auto) % Neut # (Auto) (1.8-7.7) 10^3/u L Lymph # (Auto) (0.8-4.8) 10^3/u L Gray # (Auto) (0.2-0.9) 10^3/u L Eos # (Auto) (0.0-0.8) 10^3/u L Baso # (Auto) (0.0-0.1) 10^3/u L Nucleated RBC % (a uto) % Nucleated RBCs # /100WBC Specimen Type Arterial Sample Site Brachial, right ABG pH 7.41 (7.35-7.45) ABG pCO2 34.6 L (35-45) mmHg ABG pO2 185.0 H (80.0-100.0) mmH g ABG HCO3 22.1 (22-26) mmol/L ABG O2 Saturation 99.9 ABG Base Excess -1.9 (-2.0-2.0) mmol/ L Akil Test N/a A-a O2 Gradient 3.4 L (5-10) mmHg Hematocrit 39.9 (37-47) % Hgb O2 Saturation 98.3 (95-100) % Carboxyhemoglobin 0.8 (0.4-20.1) %THgb Methemoglobin 0.8 (0.4-1.5) % Total Hemoglobin 13.0 (12-16) g/dL Ionized Calcium 1.0 L (1.1-1.4) mmol/L O2 Delivery Device Nc O2 Liters/Min 4.0 % FiO2 36.0 % [employer] ID Gd Sodium 140.0 (136-145) mmol/L Potassium 3.6 (3.5-5.1) mmol/L Chloride (98-107) mmol/L Carbon Dioxide (22-29) mmol/L Anion Gap (5-19) BUN (8-23) mg/dL Creatinine (0.5-0.9) mg/dL GFR Calculation (90-130) mL/min Glucose 161.0 H (65-115) mg/dL Calculated Osmolal ity (285-295) mOsm/k g Calcium (8.5-10.5) mg/dL Magnesium (1.7-2.3) mg/dL Total Bilirubin (0.15-1.2) mg/dL AST (0-32) U/L ALT (0-33) U/L Alkaline Phosphata se (35-105) IU/L Lactate Dehydrogen ase 289 H (135-214) U/L Creatine Kinase 210 H (26-192) U/L Troponin T Baselin e (0-10) ng/L Troponin T 120 Min [place] 22.23 H (0-10) ng/L Delta Troponin T -5.77 L (0-10) ABS# C-Reactive Protein 5.4 H (0.0-4.9) mg/L Total Protein (6.6-8.7) g/dL Albumin (3.5-5.2) g/dL Globulin (1.3-4.6) g/dL Lipase (13-60) U/L Procalcitonin 0.13 (0-0.5) ng/mL TSH 3.15 (0.27-4.20) uIU/ mL Urine Color (Yellow) Urine Appearance (CLEAR) Urine pH (5-7) Ur Specific Gravit y (1.005-1.030) Urine Protein (Negative) Urine Glucose (UA) (Normal) Urine Ketones (Negative) Urine Blood (Negative) Urine Nitrate (Negative) Urine Bilirubin (Negative) Prot Sulfosalicyli c Acd (Negative) Urine Urobilinogen (Negative) mg/dL Ur Leukocyte Lin ase (Negative) Urine RBC (0-2) /hpf Urine WBC (0-5) /hpf Ur Squamous Epith Cells (0-5) /hpf Amorphous Sediment Urine Bacteria (NONE) /hpf Urine Mucus /hpf 08/06/ Range/Units 09:08 WBC (4.0-10.0) 10^3/ uL RBC (4.1-5.3) 10^6/u L Hgb (11.5-15.3) g/dL Hct (37.0-47.0) % MCV (81-99) fL MCH (28.0-34.0) pg MCHC (30.0-36.0) g/dL RDW (12.1-15.1) % Plt Count (130-400) 10^3/c mm MPV (7.4-10.4) fL Neut % (Auto) % Lymph % (Auto) % Gray % (Auto) % Eos % (Auto) % Baso % (Auto) % Neut # (Auto) (1.8-7.7) 10^3/u L Lymph # (Auto) (0.8-4.8) 10^3/u L Gray # (Auto) (0.2-0.9) 10^3/u L Eos # (Auto) (0.0-0.8) 10^3/u L Baso # (Auto) (0.0-0.1) 10^3/u L Nucleated RBC % (a uto) % Nucleated RBCs # /100WBC Specimen Type Sample Site ABG pH (7.35-7.45) ABG pCO2 (35-45) mmHg ABG pO2 (80.0-100.0) mmH g ABG HCO3 (22-26) mmol/L ABG O2 Saturation ABG Base Excess (-2.0-2.0) mmol/ L Akil Test A-a O2 Gradient (5-10) mmHg Hematocrit (37-47) % Hgb O2 Saturation (95-100) % Carboxyhemoglobin (0.4-20.1) %THgb Methemoglobin (0.4-1.5) % Total Hemoglobin (12-16) g/dL Ionized Calcium (1.1-1.4) mmol/L O2 Delivery Device O2 Liters/Min % FiO2 % [employer] ID Sodium (136-145) mmol/L Potassium (3.5-5.1) mmol/L Chloride (98-107) mmol/L Carbon Dioxide (22-29) mmol/L Anion Gap (5-19) BUN (8-23) mg/dL Creatinine (0.5-0.9) mg/dL GFR Calculation (90-130) mL/min Glucose (65-115) mg/dL Calculated Osmolal ity (285-295) mOsm/k g Calcium (8.5-10.5) mg/dL Magnesium (1.7-2.3) mg/dL Total Bilirubin (0.15-1.2) mg/dL AST (0-32) U/L ALT (0-33) U/L Alkaline Phosphata se (35-105) IU/L Lactate Dehydrogen ase (135-214) U/L Creatine Kinase (26-192) U/L Troponin T Baselin e (0-10) ng/L Troponin T 120 Min [place] (0-10) ng/L Delta Troponin T (0-10) ABS# C-Reactive Protein (0.0-4.9) mg/L Total Protein (6.6-8.7) g/dL Albumin (3.5-5.2) g/dL Globulin (1.3-4.6) g/dL Lipase (13-60) U/L Procalcitonin (0-0.5) ng/mL TSH (0.27-4.20) uIU/ mL Urine Color Straw (Yellow) Urine Appearance Clear (CLEAR) Urine pH 8 H (5-7) Ur Specific Gravit y 1.010 (1.005-1.030) Urine Protein Neg (Negative) Urine Glucose (UA) Norm (Normal) Urine Ketones Negative (Negative) Urine Blood Neg (Negative) Urine Nitrate Negative (Negative) Urine Bilirubin Neg (Negative) Prot Sulfosalicyli c Acd Negative (Negative) Urine Urobilinogen Norm (Negative) mg/dL Ur Leukocyte Lin ase Negative (Negative) Urine RBC None (0-2) /hpf Urine WBC Rare (0-5) /hpf Ur Squamous Epith Cells Rare (0-5) /hpf Amorphous Sediment Not Reportable Urine Bacteria Trace (NONE) /hpf Urine Mucus 2+ /hpf Discharge Plan Discharge Patient Disposition: Admitted As Inpatient Admit Provider: Corbin Bedolla Clinical Impression: Right lower lobe pneumonia, Dehydration, Altered mental status, Drug-induced nausea and vomiting Condition: Stable Sign Out Sign Out Data: Patient Sign Out occurred on 08/06/20 at 06:57. Patient's care was discussed, and care was transferred from Tete Marley to Yayo Delgado DO. Sign Out Comment: Case turned over to Dr. Delgado at change of shift. Last updated by Tete Marley at 08/06/20 05:45 Coding Level of Care Code ED Marriage And Family Teacher for Chg Fwd Exam Comprehensive
[2020-08-06 05:29] LABS: Alanine Aminotransferase 26 U/L (0-33); Albumin Level 4.5 g/dL (3.5-5.2); Alkaline Phosphatase 125 IU/L (35-105); Anion Gap 19.5 (5-19); Aspartate Amino Transferase 34 U/L (0-32); Blood Urea Nitrogen 11 mg/dL (8-23); Calcium 9.4 mg/dL (8.5-10.5); Carbon Dioxide 21 mmol/L (22-29); Chloride 100 mmol/L (98-107); Glomerular Filtration Rate 61.9 mL/min (90-130); Glucose 171 mg/dL (65-115); Lipase 19 U/L (13-60); Magnesium 1.8 mg/dL (1.7-2.3); Osmolality Calculated 287 mOsm/kg (285-295); Potassium 3.5 mmol/L (3.5-5.1); Sodium 137 mmol/L (136-145); Total Bilirubin 1.3 mg/dL (0.15-1.2); Total Protein 6.5 g/dL (6.6-8.7)
--- NOTE | 2020-08-06 06:05 | PC.NURSE ---
daughter at bedside assisting with keeping pt from climbing at of the bed.
[2020-08-06] MEDS: LORazepam 2 mg/mL INJ 1 mL IVP (06:35)
--- NOTE | 2020-08-06 06:54 | PC.NURSE ---
Report to ZULEIMA Monreal.
--- NOTE | 2020-08-06 07:00 | ECG_ITS ---
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 Measurements Intervals [place] Rate: 73 P: 64 AK: 263 QRS: -63 QRSD: 121 T: 82 QT: 455 QTc: 504 Interpretive Statements SINUS RHYTHM WITH FIRST DEGREE AV BLOCK LEFT AXIS DEVIATION [QRS AXIS < -30] ANTEROSEPTAL MYOCARDIAL INFARCTION , PROBABLY OLD [40+ ms Q WAVE IN V1-V4] Compared to ECG 10/02/2019 06:51:26 First degree AV block now present Left-axis deviation now present Myocardial infarct finding still present Electronically Signed On 08-06-2020 8:41:37 PRINT OPERATOR by Tsering Hirsch M.D. [id number]
--- NOTE | 2020-08-06 07:51 | USR_ITS ---
PROCEDURE INFORMATION: Exam: US Abdomen, Limited; Right Upper Quadrant Exam date and time: 08/06/2020 8:33 AM Age: 70 years old Clinical indication: Abnormal findings; Abnormal lab test; Elevated liver enzymes; Additional info: Elevated t bili/alk phos TECHNIQUE: Imaging protocol: US abdomen. Real time ultrasound with image documentation. Limited exam focused on the right upper quadrant. COMPARISON: No relevant prior studies available. FINDINGS: Liver: There is diffuse increased echogenicity of the liver consistent with fatty liver. There are no obvious liver masses. Gallbladder: Cholecystectomy. Common bile duct: Normal bile ducts. The common bile duct measures 5.5 mm in diameter. Pancreas: The pancreas is not evaluated due to prominent overlying bowel gas. Right kidney: The right kidney is normal. Aorta: The aorta is unremarkable. Inferior vena cava: The inferior vena cava is normal. US/US abdomen limited [id number] IMPRESSION: 1. Cholecystectomy. Normal bile ducts. 2. Fatty liver.
[2020-08-06 08:43] LABS: Troponin 5 2HR 22.23 ng/L (0-10)
[2020-08-06 09:04] LABS: Troponin 5 2HR Delta -5.77 ABS# (0-10)
[2020-08-06 09:11] LABS: ABG PCO2 34.6 mmHg (35-45); ABG PH Result 7.41 (7.35-7.45); Alveolar-Arterial Oxygen Gradi 3.4 mmHg (5-10); Arterial Blood Gas Hematocrit 39.9 % (37-47); Base Excess ABG -1.9 mmol/L (-2.0-2.0); Blood Gas Operator Identificat GD; Blood Gas Sample Site Brachial, right; Blood Gas Sample Type Arterial; Carboxyhemoglobin 0.8 %THgb (0.4-20.1); HCO3 ABG 22.1 mmol/L (22-26); HGB O2 Sat 98.3 % (95-100); Methemoglobin 0.8 % (0.4-1.5); Oxygen Device NC; Oxygen Saturation ABG 99.9; Potassium Level - ABG 3.6 mmol/L (3.5-5.0)
[2020-08-06] MEDS: levofloxacin-dextrose 5 % 750 MG/150 ML PREMIX 100 MG IV (09:14)
[2020-08-06] MEDS: piperacillin-tazobactam 3.375 GM in sodium chloride 0.9% (plus) 50 ML IV (09:14)
[2020-08-06 10:07] LABS: SARS Covid-2 Antigen Negative (Negative)
[2020-08-06 10:08] LABS: Bilirubin Urine Neg (Negative); Blood Urine Neg (Negative); Glucose Urine UA Norm (Normal); Ketones Urine Negative (Negative); Leukocyte Esterase Urine Negative (Negative); Nitrate Urine Negative (Negative); Protein Urine Neg (Negative); Sulfosalicylic Acid Urine Negative (Negative); Urine Appearance Clear (CLEAR); Urine Color Straw (Yellow); Urobilinogen Urine Norm (Negative); pH Urine 8 (5-7)
[2020-08-06 10:09] LABS: Bacteria Urine TRACE /hpf; Mucus Urine 2+ /hpf; Squamous Epithelial Cell Urine RARE /hpf (0-5); WBC Urine RARE /hpf (0-5)
[2020-08-06 10:10] LABS: Add Urine Culture? No
--- NOTE | 2020-08-06 11:00 | ECG_ITS ---
[facility] Test Date: 2020-08-06 Pat Name: Chrissy Perez Department: Room: 264 Gender: Female Consumer Credit Counselor: : 1950 Requested By: Tete Tompkins Order Number: [id number] Lizbet MD: Tsering Hirsch M.D. Measurements Intervals [place] Rate: 78 P: NC: QRS: -70 QRSD: 119 T: 88 QT: 454 QTc: 520 Interpretive Statements Possibly atrial fibrillation Left axis deviation ANTEROSEPTAL MYOCARDIAL INFARCTION , PROBABLY OLD [40+ ms Q WAVE IN V1-V4] Compared to ECG 08/06/2020 07:05:13 Sinus rhythm no longer present First degree AV block no longer present Left-axis deviation no longer present Myocardial infarct finding still present Electronically Signed On 08-09-2020 17:52:11 STUDENT SERVICES ADVISOR by Tsering Hirsch M.D. [id number]
[2020-08-06 11:05] LABS: Lactic Sepsis W/Reflex 2.6 mmol/L (0.5-2.2)
[2020-08-06] MEDS: ondansetron 2 mg/ML SDV 2 mL 4 MG IVP (11:21)
[2020-08-06] MEDS: D5-NS 0.45% + KCL 20 mEq 20 MEQ/1,000 ML BAG 100 MEQ IV ×2 (11:21→21:30)
[2020-08-06 12:12] LABS: Reflex Lactate Order REFLEX LACTIC ORDERD
[2020-08-06 12:51] LABS: Troponin 5 6HR 21.72 ng/L (0-10)
--- NOTE | 2020-08-06 12:56 | P.HP_ITS ---
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 Patient's daughter tells me that this happened the last time she received the trial drug roughly 6 months ago, she came to the emergency room and received fluids and was discharged home. She last followed up with her with her stone spreader operator a week ago, told that her amyloidosis was worsening, seems like her heart failure might have been worsening, so she was instructed to retry tegsedi. She took a shot last night, about an hour after she started to feel quite nauseous, vomiting, dry heaving, fevers, fatigue, malaise. Daughter was concerned for dehydration, so she brought her to the emergency room. In the emergency room, she had evidence of dehydration, right lower lobe pneumonia hospitalist team was called for admission. In the emergency room she did have episodes of confusion, she is requiring a one-on-one sitter. During my examination at bedside, she is quite somnolent, she does awaken, she does follow commands, she does know details about her amyloidosis, but is quite drowsy. Denies any complaints currently, tells me that she feels dehydrated, she needs fluids. Denies chest pain. Denies shortness of breath. Her and her daughter denies any strokelike symptoms. No strokes in the past. NIH stroke scale was 0. She has no particular complaints, she knows that she is in the hospital, she knows her name, knows the president, does not know the time. She tells me that she is quite sleepy and drowsy, as she did not get any sleep last night because she was up all night with a dry heaving. Review of Systems Const: Reports: fever(s), fatigue and malaise; Denies: chills Eyes: Denies: change in vision or blurry vision ENMT: Denies: nasal congestion Card: Denies: chest pain or palpitations Resp: Denies: dyspnea, productive cough, non-productive cough or wheezing GI: Reports: nausea and vomiting; Denies: abdominal pain, hematemesis, diarrhea, constipation, hematochezia or melena : Denies: flank pain, dysuria or urinary frequency Musc: Denies: neck pain or back pain Skin/Breast: Denies: rash Neuro: Denies: headache(s), dizziness or vertigo Psych: Denies: anxiety or depression Endo: Denies: polyuria or polydipsia Medications/Allergies Home Medications Medication Instructions Recorded Confirmed Last Taken Type cetirizine [Zyrtec] 10 mg PO DAILY@0730 10/02/19 08/06/20 08/06/20 History furosemide [Lasix] 20 mg PO DAILY@0730 10/02/19 08/06/20 08/06/20 History levothyroxine 100 mcg PO DAILY@0730 10/02/19 08/06/20 08/06/20 History omeprazole magnesium [Prilosec OTC] 20 mg PO DAILY@0730 10/02/19 08/06/20 08/06/20 History spironolactone 25 mg PO DAILY@0730 10/02/19 08/06/20 08/06/20 History ondansetron HCl [Zofran] 4 mg PO Q6H PRN #10 tab 01/30/20 08/06/20 08/06/20 Rx citalopram 20 mg PO DAILY@0730 08/06/20 08/06/20 08/06/20 History inotersen [Tegsedi] 284 mg SUBCUT Q7D 08/06/20 08/06/20 08/04/20 History Allergies Allergy/AdvReac Type Severity Reaction Status Date / Time No Known Allergies Allergy Verified 10/02/19 06:56 PFSH Acute PFSH: Medical History Amyloidosis GERD (gastroesophageal reflux disease) Hypertension Hypothyroidism Surgical History Hx of cholecystectomy Family History Sister Amyloidosis Social History Smoking and tobacco status: never smoked Vitals/I&O/Wt Last Vital Signs Temp 98.1 F 08/06/20 12:00 Pulse 80 08/06/20 12:00 Resp 18 08/06/20 12:00 BP 149/78 08/06/20 12:00 Pulse Ox 96 08/06/20 12:00 08/05/20 08/06/20 08/06/20 22:59 06:59 14:59 Intake Total 3150 / 3150 Output Total 100 / 100 Balance -100 / -100 3150 / 3150 Weight last 48 hrs Weight 81.193 kg Physical Exam Const: COMMON NORMALS: no acute distress and patient oriented x3 GENERAL A PPEARANCE: cooperative ORIENTATION/CONSCIOUSNESS: Yes awake, Yes oriented to person and Yes oriented to place; not oriented to time OTHER: Somnolent, sleeping HENMT: COMMON NORMALS: normocephalic HEAD & SCALP: normocephalic Eye: COMMON NORMALS: Equal, round and reactive pupils present, EOMs intact bilaterally and no papilledema GENERAL EYE: appearance normal, both eyes and all related structures PUPIL: Yes Equal, round and reactive pupils present DIRECT OPHTHALMOSCOPY: Yes no papilledema Neck/C-Spine: COMMON NORMALS: full ROM, no lymphadenopathy, no JVD and Thyroid normal THYROID: Thyroid normal Lymph: LYMPHATIC: no lymphadenopathy noted Resp: COMMON NORMALS: normal respiratory effort, No retractions, No use of accessory muscles and clear to auscultation bilaterally AUSCULTATION: clear to auscultation bilaterally Cardio: COMMON NORMALS: no JVD, regular rate, regular rhythm, S1 normal heart sound present, S2 normal heart sound present, No gallops present (Cardio), No clicks present (Cardio) and No murmurs present (Cardio) RATE: regular rate RHYTHM: regular rhythm HEART SOUNDS: S1 normal heart sound present and S2 normal heart sound present GI: COMMON NORMALS: Normal to inspection, nondistended, normoactive bowel sounds present, Soft to palpation, non-tender and No hepatosplenomegaly present PALPATION: Yes Soft to palpation and Yes No hepatosplenomegaly present Extremity: COMMON NORMALS: normal to inspection, full ROM and no pedal edema Neuro: COMMON NORMALS: patient oriented x3, CN's II-XII intact bilaterally, moves all extremities and no focal motor deficits Psych: COMMON NORMALS: mental status grossly normal Data : 08/06/20 04:25 08/06/20 04:25 A&P Assessment and plan (1) Dehydration: -Has clinical evidence of dehydration, continue IV fluids -Continue clear liquid diet -Nausea and vomiting control with Zofran Status: Acute (2) Amyloidosis: Status: Acute (3) Altered mental status: -amswers most questions appropriately -a bit somnolent -related to dehydration and rll pneumoniae -neurologically intact, aaox3, no focal neurologic defecits -will get ct head, carotid us, cadiac echo Status: Acute (4) Hypertension: hold lasix Status: Acute (5) Right lower lobe pneumonia: Start Rocephin azithromycin- Status: Acute Attestations Medical Necessity Statement*: patient requires hospitzalization, outpatient with obs, for ams, dehydration, rll pneumoniae Coding Level of Care Code Acute Records And Tape Recordings Engineer for [facility] Fwd Diagnoses Dehydration E86.0 Amyloidosis E85.9 Altered mental status R41.82 Hypertension I10 Right lower lobe pneumonia J18.9
--- NOTE | 2020-08-06 13:02 | CTR_ITS ---
PROCEDURE INFORMATION: Exam: CT Head Without Contrast Exam date and time: 08/06/2020 1:04 PM Age: 70 years old Clinical indication: Altered mental status/memory loss; Confusion or disorientation; Patient HX: Ams/confusion TECHNIQUE: Imaging protocol: Computed tomography of the head without contrast. Radiation optimization: All CT scans at this facility use at least one of these dose optimization techniques: automated exposure control; mA and/or kV adjustment per patient size (includes targeted exams where dose is matched to clinical indication); or iterative reconstruction. COMPARISON: No relevant prior studies available. RADIATION DOSE METRICS: Total DLP (mGy-cm): 1449.43 FINDINGS: Brain: Moderate white matter disease and volume loss are identified. There is no acute infarct or edema. No hemorrhage. Cerebral ventricles: No ventriculomegaly. Bones/joints: Unremarkable. No acute fracture. Paranasal sinuses: Visualized sinuses are unremarkable. No fluid levels. Mastoid air cells: Visualized mastoid air cells are well aerated. Soft tissues: Unremarkable. CT/CT head wo con* [id number] IMPRESSION: There are no acute concerning abnormalities. Radiation Dose CTDIVOL = (mGy): DLP = 1449.43 (mGy-cm)
--- NOTE | 2020-08-06 13:02 | USCV_ITS ---
Akikoguilherme Chrissy Age: 70 Gender: F : 1950 Exam Date: 08/06/2020 15:09 Ordering Phys: Corbin Bedolla MD Technologist: Carole Durham Exam Location: [facility] Indication: SOB BP: 149 / 78 HR: 101 Rhythm: Atrial flutter Technical Quality: Adequate MEASUREMENTS (Male / Female) Normal Values 2D ECHO LV Diastolic Diameter PLAX 4.0 cm 4.2 - 5.9 / 3.9 - 5.3 cm LV Systolic Diameter PLAX 3.6 cm LV Chamber Size 4.6 cm IVS Diastolic Thickness 2.3 cm 0.6 - 1.0 / 0.6 - 0.9 cm IVS Systolic Thickness 2.3 cm LVPW Diastolic Thickness 1.6 cm 0.6 - 1.0 / 0.6 - 0.9 cm LVPW Systolic Thickness 1.8 cm RV Chamber Size 3.2 cm LVOT Diameter 2.0 cm LV Ejection Fraction 2D Teich 22.2 % LV Ejection Fraction MOD 2C 53.0 % LV Ejection Fraction 2C AL 53.4 % LA Diameter 4.6 cm LA Width 4.7 cm LA Height 6.8 cm RA Width 4.0 cm RA Height 5.8 cm Aorta at Sinotubular Diameter 2.3 cm M-MODE LV Diastolic Diameter MM 4.9 cm 4.2 - 5.9 / 3.9 - 5.3 cm LV Systolic Diameter MM 3.7 cm LV Ejection Fraction MM Teich 48.8 % IVS Diastolic Thickness MM 1.4 cm 0.6 - 1.0 / 0.6 - 0.9 cm IVS Systolic Thickness MM 1.8 cm LVPW Diastolic Thickness MM 1.9 cm 0.6 - 1.0 / 0.6 - 0.9 cm LVPW Systolic Thickness MM 2.2 cm RV Diastolic Diameter MM 3.2 cm Aortic Annulus Diameter 2.9 cm LA Ao Ratio MM 1.6 MV E Point Septal Separation 0.7 cm DOPPLER AV Peak Velocity 94.0 cm/s LVOT Peak Velocity 67.0 cm/s AV Area Cont Eq vti 2.0 cm squared AV Area Cont Eq pk 2.1 cm squared MV Area PHT 7.1 cm squared MV E' Velocity 133.0 cm/s TR Peak Velocity 226.8 cm/s TR Peak Gradient 20.6 mmHg TV Peak E Velocity 59.0 cm/s Right Atrial Pressure 3.0 mmHg Pulmonary Artery Systolic Pressu 23.6 mmHg PV Peak Velocity 60.0 cm/s RV Acceleration Time 0.1 s RV Ejection Time 0.2 s RV AcT/ET 0.2 FINDINGS Left Ventricle Normal left ventricular cavity size. Increased left ventricular wall thickness. Severe concentric left ventricular hypertrophy. Mildly decreased left ventricular systolic function. Left ventricular ejection fraction is estimated at 45 %. No regional wall motion abnormalities. Grade III diastolic dysfunction (restrictive filling pattern), severely elevated filling pressures. . Right Ventricle Normal right ventricular size and systolic function, RVSP 23.6 mmHg. Right Atrium Normal right atrial size. Right atrial pressure estimated at 3 mm Hg. Left Atrium Moderately increased left atrial size. Mitral Valve Mildly thickened mitral valve. No mitral valve stenosis. Moderate mitral valve regurgitation. Aortic Valve Structurally normal trileaflet aortic valve. No aortic valve stenosis. No aortic valve regurgitation. Tricuspid Valve Structurally normal tricuspid valve. No tricuspid valve stenosis. Mild tricuspid valve regurgitation. Pulmonic Valve Structurally normal pulmonic valve. No pulmonary valve stenosis. Trace pulmonary valve regurgitation. Pericardium No pericardial effusion. Aorta Normal size aortic root and proximal ascending aorta. Normal sized inferior vena cava. CONCLUSIONS 1. Normal left ventricular cavity size. Severe concentric left ventricular hypertrophy. Mildly decreased left ventricular systolic function. Left ventricular ejection fraction is estimated at 45 %. No regional wall motion abnormalities. Grade III diastolic dysfunction (restrictive filling pattern), severely elevated filling pressures. 2. Moderately increased left atrial size. 3. Moderate mitral valve regurgitation. 4. Right atrial pressure estimated at 3 mm Hg. 5. Pulmonary artery pressure estimated at 24 mm Hg. 6. No prior similar studies to compare. Tsering Hirsch MD (Electronically Signed) Final Date: 06 August 2020 19:50 S
--- NOTE | 2020-08-06 13:02 | USR_ITS ---
PROCEDURE INFORMATION: Exam: US Duplex Bilateral Extracranial Arteries Exam date and time: 08/06/2020 2:20 PM Age: 70 years old Clinical indication: Altered mental status/memory loss; Additional info: AMS TECHNIQUE: Imaging protocol: Real-time Duplex ultrasound scan of the bilateral carotid and vertebral arteries combining snow scale, color Doppler and spectral waveform analysis. Bilateral exam. COMPARISON: CT head wo con* [id number] 08/06/2020 1:57 PM FINDINGS: Peak systolic and end-diastolic velocities on the RIGHT are as follows: Proximal common carotid artery 42 and 9 cm/s Mid common carotid artery 40 and 9 cm/s Distal common carotid artery 43 and 16 cm/s Proximal internal carotid artery 27 and 9 cm/s Mid internal carotid artery 31 and 11 cm/s Distal internal carotid artery 36 and 11 cm/s Proximal external carotid artery 42 and 10 cm/s Vertebral artery 35 and 10 cm/s Peak systolic and end-diastolic velocities on the LEFT are as follows: Proximal common carotid artery 57 and 12 cm/s Mid common carotid artery 37 and 12 cm/s Distal common carotid artery 51 and 17 cm/s Proximal internal carotid artery 52 and 14 cm/s Mid internal carotid artery 44 and 17 cm/s Distal internal carotid artery 66 and 25 cm/s Proximal external carotid artery 34 and 10 cm/s Vertebral artery 23 and 9 cm/s The ICA to CCA ratio is 0.9 on the right and 1.8 on the left. US/CV carotid duplex BI* [id number] IMPRESSION: No hemodynamically significant carotid artery stenosis.
[2020-08-06 13:13] LABS: Troponin 5 6HR Delta -6.28 ng/L (0-12)
[2020-08-06 13:26] LABS: Procalcitonin 0.13 ng/mL (0-0.5); Thyroid Stimulating Hormone 3.15 uIU/mL (0.27-4.20)
[2020-08-06 13:37] LABS: C Reactive Protein 5.4 mg/L (0.0-4.9); Creatine Phosphokinase 210 U/L (26-192); Lactate Dehydrogenase 289 U/L (135-214)
[2020-08-06 14:23] LABS: Ammonia 58 umol/L (11-51)
[2020-08-06 14:39] LABS: Lactic Acid level (Lactate) 2.8 mmol/L (0.5-2.2)
[2020-08-06] MEDS: azithromycin 500 MG in sodium chloride 0.9% 250 ML 250 MG IV (16:10)
[2020-08-06] MEDS: enoxaparin 40 mg/0.4 mL Syringe SUBCUT (17:16)
[2020-08-06] MEDS: metoclopramide 5 mg/mL SDV 2 mL IVP (17:55)
[2020-08-06] MEDS: CLONazepam 0.5 mg Tablet 0.25 MG PO (17:58)
[2020-08-06] MEDS: famotidine 20 mg Tablet PO (17:59)
[2020-08-06] MEDS: amlodipine 10 mg Tablet PO (17:59)
[2020-08-06] MEDS: cefTRIAXone 1,000 MG in sodium chloride 0.9% (plus) 50 ML 100 MG IV (18:02)
--- NOTE | 2020-08-06 21:52 | PC.NURSE ---
Patient's daughter updated on patient's condition.
[2020-08-07] VITALS (9 sets, daily range): BP systolic 127–149; BP diastolic 79–97; PULSE 92–116; RESP 17–20; TEMP 36.4–37.2; O2SAT 94–98
[2020-08-07 05:12] LABS: Basophils % 0.2 %; Eosinophils % 0.1 %; Hematocrit 39.5 % (37.0-47.0); Hemoglobin 13.4 g/dL (11.5-15.3); Lymphocytes # 1.7 10^3/uL (0.8-4.8); Lymphocytes % 17.2 %; Mean Corpuscular HGB Conc 33.9 g/dL (30.0-36.0); Mean Corpuscular Hemoglobin 29.6 pg (28.0-34.0); Mean Corpuscular Volume 87.2 fL (81-99); Mean Platelet Volume 9.3 fL (7.4-10.4); Monocytes # 0.5 10^3/uL (0.2-0.9); Monocytes % 4.6 %; Neutrophils # 7.86 10^3/uL (1.8-7.7); Neutrophils % 77.6 %; Nucleated Red Blood Cells % 0 %; Platelet Count 144 10^3/cmm (130-400); Red Blood Count 4.53 10^6/uL (4.1-5.3); Red Cell Distribution Width 15.3 % (12.1-15.1); White Blood Count 10.1 10^3/uL (4.0-10.0)
[2020-08-07 05:35] LABS: Lactic Sepsis W/Reflex 1.9 mmol/L (0.5-2.2)
[2020-08-07 05:45] LABS: Alanine Aminotransferase 23 U/L (0-33); Albumin Level 4.1 g/dL (3.5-5.2); Alkaline Phosphatase 108 IU/L (35-105); Anion Gap 13.5 (5-19); Aspartate Amino Transferase 32 U/L (0-32); Blood Urea Nitrogen 7 mg/dL (8-23); Calcium 8.6 mg/dL (8.5-10.5); Carbon Dioxide 24 mmol/L (22-29); Chloride 93 mmol/L (98-107); Globulin 2.3 g/dL (1.3-4.6); Glomerular Filtration Rate 98.8 mL/min (90-130); Glucose 147 mg/dL (65-115); Magnesium 1.7 mg/dL (1.7-2.3); NT Pro B Type Natriuretic Pept 11635 pg/mL (0-125); Osmolality Calculated 265 mOsm/kg (285-295); Phosphorus 2.4 mg/dL (2.5-4.5); Potassium 3.5 mmol/L (3.5-5.1); Sodium 127 mmol/L (136-145); Total Bilirubin 1.2 mg/dL (0.15-1.2); Total Protein 6.4 g/dL (6.6-8.7)
[2020-08-07 06:10] LABS: Estmated Average Glucose 105; Hemoglobin A1C 5.3 % (4.0-6.0)
--- NOTE | 2020-08-07 06:37 | PC.NURSE ---
Patient rested well through the night without any episodes of N/V or confusion. Patient had no complaints of pain. Vitals WNL Patient was under One-To-One observation.
[2020-08-07] MEDS: D5-NS 0.45% + KCL 20 mEq 20 MEQ/1,000 ML BAG 100 MEQ IV (06:43)
[2020-08-07] MEDS: famotidine 20 mg Tablet PO ×2 (08:49→17:04)
[2020-08-07] MEDS: cetirizine 10 mg Tablet PO (08:49)
[2020-08-07] MEDS: citalopram 20 mg Tablet PO (08:49)
[2020-08-07] MEDS: amlodipine 10 mg Tablet PO (08:49)
[2020-08-07] MEDS: spironolactone 25 mg Tablet PO (08:49)
[2020-08-07] MEDS: levothyroxine 100 mcg Tablet PO (08:49)
[2020-08-07] MEDS: CLONazepam 0.5 mg Tablet 0.25 MG PO ×2 (09:43→23:58)
[2020-08-07 10:52] LABS: Potassium, Radom Urine 46 mmol/L; Urine Creatinine 70 mg/dL (28-217); Urine Random Chloride 210 mmol/L; Urine Random Sodium 214 mmol/L
[2020-08-07 11:05] LABS: Urea Nitrogen,Urine Random 369 mg/dL
--- NOTE | 2020-08-07 11:14 | PM.PN ---
Subjective Subjective: Interval history: This morning patient was examined, she sitting up to the side of bed, tell me that she did have a good night, did not get any sleep, she overall feels better, still feels a bit nauseous, but overall doing better, no chest pain, no palpitations Vitals/I&O/Wt Last Vital Signs Temp 97.9 F 08/07/20 07:58 Pulse 105 H 08/07/20 08:34 Resp 18 08/07/20 07:58 BP 146/88 08/07/20 07:58 Pulse Ox 97 08/07/20 08:34 08/06/20 08/07/20 08/07/20 22:59 06:59 14:59 Intake Total 1120 / 4270 921.667 / 5191.667 120 / 120 Output Total 400 / 400 800 / 800 Balance 1120 / 4270 521.667 / 4791.667 -680 / -680 Weight last 48 hrs Weight 81.193 kg Physical Exam Const: COMMON NORMALS: no acute distress and patient oriented x3 HENMT: COMMON NORMALS: normocephalic HEAD & SCALP: normocephalic Neck/C-Spine: COMMON NORMALS: no JVD Resp: COMMON NORMALS: normal respiratory effort, No retractions, No use of accessory muscles and clear to auscultation bilaterally AUSCULTATION: clear to auscultation bilaterally Cardio: COMMON NORMALS: no JVD, regular rate, regular rhythm, S1 normal heart sound present and S2 normal heart sound present RATE: regular rate RHYTHM: regular rhythm HEART SOUNDS: S1 normal heart sound present and S2 normal heart sound present GI: COMMON NORMALS: Normal to inspection, nondistended, normoactive bowel sounds present, Soft to palpation, non-tender, No hepatosplenomegaly present, no masses and no bruits PALPATION: Yes Soft to palpation and Yes No hepatosplenomegaly present Extremity: COMMON NORMALS: capillary refill normal, no clubbing, cyanosis or edema, no calf tenderness and no pedal edema Neuro: COMMON NORMALS: patient oriented x3 Psych: COMMON NORMALS: mental status grossly normal Data : 08/07/20 05:00 08/07/20 05:00 Micro: Microbiology 08/06/20 09:08 Blood Culture - Preliminary Blood SPECIMEN COLLECTED 08/06/20 09:08 Blood Culture - Preliminary Blood SPECIMEN COLLECTED A&P Assessment and plan (1) Dehydration: -likely adverse reaction to tegseda -Dehydration improved, stop IV fluids as patient has severe LVH -General diet -Nausea and vomiting control with Zofran Status: Acute (2) Amyloidosis: -on tegseda Status: Acute (3) Altered mental status: -Resolved -Answers most questions appropriately, alert oriented x3 -No focal neurologic deficits -Likely secondary to dehydration and right lower lobe pneumonia -Head CT shows: Brain: Moderate white matter disease and volume loss are identified. There is no acute infarct or edema. No hemorrhage. Cerebral ventricles: No ventriculomegaly. Bones/joints: Unremarkable. No acute fracture. Paranasal sinuses: Visualized sinuses are unremarkable. No fluid levels. Mastoid air cells: Visualized mastoid air cells are well aerated. Soft tissues: Unremarkable. -echo shows: 1. Normal left ventricular cavity size. Severe concentric left ventricular hypertrophy. Mildly decreased left ventricular systolic function. Left ventricular ejection fraction is estimated at 45 %. No regional wall motion abnormalities. Grade III diastolic dysfunction (restrictive filling pattern), severely elevated filling pressures. 2. Moderately increased left atrial size. 3. Moderate mitral valve regurgitation. 4. Right atrial pressure estimated at 3 mm Hg. 5. Pulmonary artery pressure estimated at 24 mm Hg. 6. No prior similar studies to compare. -Carotid artery ultrasound shows: No hemodynamically significant carotid artery stenosis. Patient Status: Acute (4) Hypertension: hold lasix Status: Acute (5) Right lower lobe pneumonia: -Continue Rocephin and azithromycin -Follow urine cultures and blood cultures Status: Acute (6) Hyponatremia: -Serum sodium 127 -Possibly related to fluid, or tegseda -We will do urine sodium studies Status: Acute Attestations Medical Necessity Statement*: Patient requires hospitalization for altered mental status, hyponatremia, dehydration, right lower lobe pneumonia Coding Level of Care Code Acute Industrial Relations Commissioner for [facility] Diagnoses Dehydration E86.0 Amyloidosis E85.9 Altered mental status R41.82 Hypertension I10 Right lower lobe pneumonia J18.9 Hyponatremia E87.1
[2020-08-07] MEDS: enoxaparin 40 mg/0.4 mL Syringe SUBCUT (13:43)
[2020-08-07] MEDS: ondansetron 2 mg/ML SDV 2 mL 4 MG IVP (13:43)
[2020-08-07] MEDS: azithromycin 500 MG in sodium chloride 0.9% 250 ML 250 MG IV (13:44)
[2020-08-07 14:19] LABS: Eosinophil Urine No Eosinophils Seen; Urine Eosinophil Count 0 (0-0)
[2020-08-07] MEDS: cyclobenzaprine 10 mg Tablet 5 MG PO (14:40)
[2020-08-07] MEDS: cefTRIAXone 1,000 MG in sodium chloride 0.9% (plus) 50 ML 100 MG IV (15:32)
--- NOTE | 2020-08-07 17:51 | PC.NURSE ---
SHIFT SUMMARY PATIENT HAS BEEN ALERT AND ORIENTED ALL DAY TODAY. GOOD URINE OUTPUT. STILL HAVING NAUSEA AND POOR APPETITE. MOMENTS OF ANXIETY. PATIENT COMPLAINING OF HICCUPS. STARTED ON FLEXERIL AND HAS IMPROVED. CONTINUE TO MONITOR.
[2020-08-08] VITALS (8 sets, daily range): BP systolic 130–157; BP diastolic 86–101; PULSE 93–119; RESP 16–20; TEMP 36.4–36.9; O2SAT 94–96
[2020-08-08 05:31] LABS: Basophils % 0.2 %; Eosinophils % 0.2 %; Hematocrit 38.1 % (37.0-47.0); Hemoglobin 13.1 g/dL (11.5-15.3); Lymphocytes # 1.8 10^3/uL (0.8-4.8); Lymphocytes % 15.2 %; Mean Corpuscular HGB Conc 34.4 g/dL (30.0-36.0); Mean Corpuscular Hemoglobin 29.4 pg (28.0-34.0); Mean Corpuscular Volume 85.6 fL (81-99); Mean Platelet Volume 10.1 fL (7.4-10.4); Monocytes # 0.8 10^3/uL (0.2-0.9); Monocytes % 6.7 %; Neutrophils # 9.14 10^3/uL (1.8-7.7); Neutrophils % 77.2 %; Nucleated Red Blood Cells % 0 %; Platelet Count 152 10^3/cmm (130-400); Red Blood Count 4.45 10^6/uL (4.1-5.3); Red Cell Distribution Width 14.8 % (12.1-15.1); White Blood Count 11.8 10^3/uL (4.0-10.0)
[2020-08-08 05:54] LABS: Alanine Aminotransferase 24 U/L (0-33); Albumin Level 4.2 g/dL (3.5-5.2); Alkaline Phosphatase 101 IU/L (35-105); Anion Gap 15.7 (5-19); Aspartate Amino Transferase 29 U/L (0-32); Blood Urea Nitrogen 11 mg/dL (8-23); Carbon Dioxide 23 mmol/L (22-29); Chloride 94 mmol/L (98-107); Globulin 2.3 g/dL (1.3-4.6); Glomerular Filtration Rate 82.7 mL/min (90-130); Glucose 113 mg/dL (65-115); Magnesium 1.8 mg/dL (1.7-2.3); Osmolality Calculated 268 mOsm/kg (285-295); Phosphorus 3.1 mg/dL (2.5-4.5); Potassium 3.7 mmol/L (3.5-5.1); Sodium 129 mmol/L (136-145); Total Bilirubin 1.3 mg/dL (0.15-1.2); Total Protein 6.5 g/dL (6.6-8.7)
[2020-08-08] MEDS: citalopram 20 mg Tablet PO (06:47)
[2020-08-08] MEDS: cetirizine 10 mg Tablet PO (06:47)
[2020-08-08] MEDS: levothyroxine 100 mcg Tablet PO (06:47)
[2020-08-08] MEDS: spironolactone 25 mg Tablet PO (06:47)
[2020-08-08] MEDS: amlodipine 10 mg Tablet PO (08:05)
[2020-08-08] MEDS: famotidine 20 mg Tablet PO (08:05)
[2020-08-08] MEDS: CLONazepam 0.5 mg Tablet 0.25 MG PO (12:39)
[2020-08-08] MEDS: azithromycin 500 MG in sodium chloride 0.9% 250 ML 250 MG IV (13:51)
[2020-08-08] MEDS: enoxaparin 40 mg/0.4 mL Syringe SUBCUT (13:51)
--- NOTE | 2020-08-08 15:31 | P.DS_ITS ---
Discharge Providers Date of Admission: 08/06/20 09:13 Date of Discharge: August 08, 2020 Attending Provider at Admission: Corbin Bedolla MD Attending Provider at Discharge: Kendal Salvador MD Primary Care Provider: Uriel Joseph MD Diagnoses at Discharge Discharge Diagnosis (1) Dehydration: Status: Acute (2) Amyloidosis: Status: Acute (3) Altered mental status: Status: Acute (4) Hypertension: Status: Acute (5) Right lower lobe pneumonia: Status: Acute (6) Hyponatremia: Status: Acute Reason for Visit Reason for Visit: n/v/ allergic reaction Hospital Course Hospital Course Chrissy Perez is a 70 year old female with past medical history of diffuse amyloidosis, on trial drug tegsedi through [facility], this is her second treatment, last treatment was 6 months ago, 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 She remained afebrile, no gross leukocytosis, however chest x-ray did reveal right lower lobe faint infiltrate raising concern for community-acquired pneumonia. He has been started on treatment with ceftriaxone and Rocephin. Fever has not recurred. She is saturating well on room air at this present time. Per review of notes it appears she was disoriented upon admission, however this has improved significantly with hydration. Patient is currently still appearing to be volume depleted in spite of her diuretics being on hold, for the last 2 days she was requiring IV fluid resuscitation, which was discontinued yesterday due to concerns for poor diastolic function. Sodium is improved from 1 25-1 29 today. Patient is now completely alert awake and oriented, she ambulated within the room independently and is eager to return home today. Covid rapid antigen tested at admission was negative. Her nausea and vomiting is now resolved. States that with previous reactions to the Tegsedi she also had intense diar teodoro, however this has not been the case this time. Physical Exam Narrative: EXAM NARRATIVE: GEN: Awake, alert and oriented, no acute distress , mild dehydration CVS: S1S2 N RS: CTA B/L Abd: Soft, nt/nd , bs+ REGISTERED PRIVATE DUTY NURSE: no focal neuro deficits Discharge Data Data Completed and Pending: Completed Studies During Hospitalization Category Date Time Status CT head wo con* 2 2208 Routine Cat Scan 08/06/20 13:02 Completed XR chest 1V fe ble 87797 Stat Exams 08/06/20 05:00 Completed CV carotid duplex BI* [id number] Routine Ultrasound 08/06/20 13:02 Completed CV echo complete* [id number] Routine Ultrasound 08/06/20 13:02 Completed US abdomen limite d [id number] Stat Ultrasound 08/06/20 07:51 Completed Pending at discharge Category Date Time Status Blood Culture Sta t Lab 08/06/20 09:08 Results Complete Blood Co unt w/Auto AM LABS Lab 08/09/20 04:00 Ordered Complete Blood Co unt w/Auto AM LABS Lab 08/10/20 04:00 Ordered Comprehensive Met abolic Panel AM LA BS Lab 08/09/20 04:00 Ordered Comprehensive Met abolic Panel AM LA BS Lab 08/10/20 04:00 Ordered Magnesium AM LABS Lab 08/09/20 04:00 Ordered Osmolality Urine Stat Lab 08/07/20 10:00 Received Phosphorus AM LAB S Lab 08/09/20 04:00 Ordered Sputum Culture an d Gram Stain Stat Lab 08/06/20 08:18 Uncollected Urine Protein Nimo ctrop Random Stat Lab 08/07/20 10:00 Received Labs from last 24 hours 08/08/20 08/08/20 05:15 05:15 WBC 11.8 H RBC 4.45 Hgb 13.1 Hct 38.1 MCV 85.6 MCH 29.4 MCHC 34.4 RDW 14.8 Plt Count 152 MPV 10.1 Neut % (Auto) 77.2 Lymph % (Auto) 15.2 Bland % (Auto) 6.7 Eos % (Auto) 0.2 Baso % (Auto) 0.2 Neut # (Auto) 9.14 H Lymph # (Auto) 1.8 Bland # (Auto) 0.8 Eos # (Auto) 0.0 Baso # (Auto) 0.0 Nucleated RBC % (a uto) 0 Nucleated RBCs # 0.0 Sodium 129 L Potassium 3.7 Chloride 94 L Carbon Dioxide 23 Anion Gap 15.7 BUN 11 Creatinine 0.7 GFR Calculation 82.7 L Glucose 113 Calculated Osmolal ity 268 L Calcium 9.0 Phosphorus 3.1 Magnesium 1.8 Total Bilirubin 1.3 H AST 29 ALT 24 Alkaline Phosphata se 101 Total Protein 6.5 L Albumin 4.2 Globulin 2.3 Vitals: Last Vital Signs Temp 97.5 F L 08/08/20 12:00 Pulse 115 H 08/08/20 13:15 Resp 18 08/08/20 12:00 BP 151/96 08/08/20 12:00 Pulse Ox 95 08/08/20 12:00 Discharge Plan Discharge Patient Disposition: Home Condition: Stable Prescriptions: New ondansetron HCl [Zofran] 4 mg tablet 4 mg PO Q8H PRN (Reason: nausea and vomiting) 4 Days RF: 0 amoxicillin-pot clavulanate [Augmentin] 875-125 mg tablet 1 tab PO BID 2 Days Qty: 4 RF: 0 Continued spironolactone 25 mg Tablet 25 mg PO DAILY@729 RF: 0 omeprazole magnesium [Prilosec OTC] 20 mg Tablet,Delayed Release (Dr/Ec) 20 mg PO DAILY@729 RF: 0 Zyrtec 10 mg Capsule 10 mg PO DAILY@729 RF: 0 levothyroxine 100 mcg Capsule 100 mcg PO DAILY@729 RF: 0 ondansetron HCl [Zofran] 4 mg tablet 4 mg PO Q6H PRN (Reason: nausea and vomiting) Qty: 10 RF: 0 citalopram 20 mg tablet 20 mg PO DAILY@729 RF: 0 Discontinued furosemide [Lasix] 20 mg Tablet 20 mg PO DAILY@729 RF: 0 Tegsedi 284 mg/1.5 mL syringe 284 mg SUBCUT Q7D RF: 0 Discharge Orders: Discharge Order (Routine); Ordered 08/08/20 Ordered By: Kendla Salvador Other Ambulatory Orders: Comprehensive Metabolic Panel (Routine) Timeframe: 3 Days Facility: [facility] - Location: Lab - Main Lab Ordered By: Kendal Salvador Referrals: Uriel Joseph MD [Primary Care Provider] - 1-3 days Discharge Diet: Usual diet and Cardiac Discharge Activity: Resume usual activity Discharge Attestations Time Spent in Discharge Care*: other Quality Metrics Clinical Quality Measures During this hospital stay, did patient experience: None Coding Level of Care Code Acute Manager Labor Delivery for Chg Fwd Diagnoses Dehydration E86.0 Amyloidosis E85.9 Altered mental status R41.82 Hypertension I10 Right lower lobe pneumonia J18.9 Hyponatremia E87.1
[2020-08-09 11:57] LABS: Creatinine, Random Urine 100 mg/dL (20-275); Protein, Total, Random 32 mg/dL (5-24); Protein/Creatinine Ratio 320 mg/g creat (21-161)
[2020-08-09 16:32] LABS: Osmolality Urine 632 mOsm/kg (50-1200)
[2020-08-10 09:12] LABS: Albumin,Urine Random 46 %; Alpha-1-Globulins Urine Random 8 %; Alpha-2-Globulins Urine Random 15 %; Beta-Globulin,Urine Random 18 %; Gamma Globulin,Urine Random 12 %
== END 2020-08-08 16:41 | disposition home or self-care (01) | DRG 917 ==
LOC: ER 06:57 → MEDSURG 10:15
PROVIDERS: Emergency Medicine; Admitting Provider Family Medicine; Emergency Provider Family Medicine; PCP Family Medicine; Visit Provider Student in an Organized Health Care Education/Training Program
DX: T50.995A Adverse effect of other drugs, medicaments and biological substances, initial encounter (principal); J18.9 Pneumonia, unspecified organism; E85.9 Amyloidosis, unspecified; E87.1 Hypo-osmolality and hyponatremia; E86.0 Dehydration; I50.9 Heart failure, unspecified; I11.0 Hypertensive heart disease with heart failure; K21.9 Gastro-esophageal reflux disease without esophagitis; E03.9 Hypothyroidism, unspecified; I34.0 Nonrheumatic mitral (valve) insufficiency; R41.82 Altered mental status, unspecified
CPT/HCPCS: 12345; 36415; 36600; 70450; 71045; 76705; 80051; 80053; 81001; 82140; 82330; 82436; 82550; 82570; 82805; 83036; 83605; 83615; 83690; 83735; 83880; 83935; 84100; 84133; 84145; 84300; 84443; 84484; 84540; 85025; 85999; 86140; 87040; 87426; 93005; 93306; 93880; 96372; 96375; 99283; J0456; J0696; J1650; J1956; J2060; J2405; J2543; J2765; J7030; J7050

== ENCOUNTER 2020-11-10 19:20 | Emergency (ER) | payer MEDICARE, BC, SELFPAY ==
--- NOTE | 2020-11-10 19:20 | XRR_ITS ---
PROCEDURE INFORMATION: Exam: XR Left Knee Exam date and time: 11/10/2020 7:28 PM Age: 70 years old Clinical indication: Injury or trauma; Fall; Blunt trauma; Knee; Left; Prior surgery; Surgery type: Meniscus TECHNIQUE: Imaging protocol: XR Left knee. Views: 3 views. COMPARISON: No relevant prior studies available. FINDINGS: Bones/joints: A lobulated, mixed sclerotic and lucent lesion in the distal femoral diaphysis measures approximately 6 x 1.7 x 3 cm (SAT). No fracture or dislocation. Joint spaces are mildly narrowed in the medial and patellofemoral compartments. Joint effusion. Soft tissues: Prominent anterior soft tissue swelling. XR/XR knee LT 3V* [id number] IMPRESSION: 1. No acute displaced fracture or dislocation. 2. Prominent anterior soft tissue swelling and nonspecific joint effusion. 3. 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 A low-grade chondrosarcoma may appear similar. Consider follow-up with a repeat radiograph in 6 months.
[2020-11-10 19:44] VITALS: BP 109/69; PULSE 75; RESP 20; TEMP 36.6; O2SAT 96; BMI 26.2
--- NOTE | 2020-11-10 19:50 | ED_ITS ---
HPI - Extremity Problem General: Chief complaint: Extremity Injury, Lower Stated complaint: fall/left knee injury Time Seen by Provider: 11/10/20 19:22 Source: patient Mode of arrival: wheelchair Limitations: no limitations History of Present Illness: HPI Narrative: 70-year-old female patient presents to the emergency department with left knee injury. She reports tripped over the dog landing on her left knee. She reports is on blood thinners, has noted swelling and increased discoloration around the left knee. She reports pain with ambulation. She suffers from amyloidosis, under the care of Dr. Glasgow, cardiology. She reports is completing treatments at the [facility] for her diagnosis. She denies fever chills, denies neck or head pain, did not suffer loss of consc iousness with the fall. MD Complaint: extremity pain and extremity swelling Onset (ago): hour(s) (5-6) Pain Consistency: constant Location: left and lower extremity Severity scale (1-10): 6 Associated symptoms: Deny chest pain, fever(s) or rash Review of Systems General: Reports: 10 or more systems reviewed and unremarkable except in HPI and below Const: Denies: fever(s), chills or diaphoresis Eyes: Denies: blurry vision or eye redness ENMT: Denies: throat pain, dental pain or disequilibrium Card: Denies: chest pain, palpitations or irregular heart rhythm Resp: Denies: dyspnea, productive cough, non-productive cough or wheezing GI: Denies: abdominal pain, nausea or vomiting : Denies: difficulty voiding or dysuria Musc: Reports: joint pain and joint swelling; Denies: neck pain or back pain Skin/Breast: Denies: rash or pruritus Neuro: Denies: headache(s), weakness in extremities or behavioral changes Psych: Denies: anxiety or depression Jesus/Lymph: Denies: easy bruising PFSH ED PFSH: Medical History Amyloidosis GERD (gastroesophageal reflux disease) Hypertension Hypothyroidism Surgical History Hx of cholecystectomy Family History Sister Amyloidosis Social History (Reviewed 03/25/21 @ 19:54 by JIMENA York Smoking and tobacco status: never smoked Physical Exam Const: COMMON NORMALS: no acute distress, patient oriented x3, healthy appearing and alert GENERAL APPEARANCE: cooperative, comfortable and well hydrated HENMT: COMMON NORMALS: normocephalic, Normal external nose present and moist oral mucous membranes HEAD & SCALP: normocephalic NOSE: Normal external nose present Eye: COMMON NORMALS: Equal, round and reactive pupils present and EOMs intact bilaterally GENERAL EYE: appearance normal, both eyes and all related structures PUPIL: Yes Equal, round and reactive pupils present Neck/C-Spine: COMMON NORMALS: full ROM, no lymphadenopathy and supple GENERAL: Yes normal visual inspection and Yes trachea midline CERVICAL SPINE: Yes cervical ROM normal Lymph: LYMPHATIC: no lymphadenopathy noted Chest: COMMONS NORMALS: normal inspection of the chest and normal palpation of entire chest wall Resp: COMMON NORMALS: normal respiratory effort, No retractions, No use of accessory muscles and clear to auscultation bilaterally EFFORT & INSPECTION: Yes able to speak in complete sentences AUSCULTATION: clear to auscultation bilaterally Cardio: COMMON NORMALS: regular rhythm, S1 normal heart sound present, S2 normal heart sound present and Peripheral pulses 2+ throughout RHYTHM: regular rhythm HEART SOUNDS: S1 normal heart sound present and S2 normal heart sound present PERIPHERAL PULSES: Peripheral pulses 2+ throughout GI: COMMON NORMALS: Normal to inspection, nondistended, normoactive bowel sounds present, Soft to palpation and non-tender INSPECTION: Yes normal to inspection PALPATION: Yes Soft to palpation : COMMON NORMALS: Yes no CVA tenderness BLADDER/KIDNEY EXAM: Yes no CVA tenderness Back/Pelvis: COMMON NORMALS: no CVA tenderness and thoracic and lumbar spine normal to inspection Extremity: COMMON NORMALS: normal to inspection, capillary refill normal and no pedal edema GENERAL: Yes normal exam except as noted LEFT LOWER EXTREMITY: Yes knee joint Left knee: Yes inspection (ecchymosis anterior, 4 cm abrasion, superficial), Yes palpation (pain with palpation), Yes ROM (limited due to pain) and Yes neurovascular exam (distally intact) Neuro: COMMON NORMALS: patient oriented x3 and no focal motor deficits SENSORIUM/ORIENTATION: Yes alert Psych: COMMON NORMALS: mental status grossly normal, Normal thought process present and cooperative ACTIVITY/MOTOR BEHAVIOR: Yes appropriate eye contact THOUGHT PROCESS: Normal thought process present Skin: COMMON NORMALS: no rashes or lesions noted and turgor normal GENERAL SKIN EXAM: no rashes or lesions noted and turgor normal Course Vital Signs: Vital signs: Vital Signs Temperature 97.8 F 11/10/20 19:44 Pulse Rate 75 11/10/20 19:44 Respiratory Rate 20 H 11/10/20 19:44 Blood Pressure 109/69 11/10/20 19:44 Pulse Oximetry 96 11/10/20 19:44 MDM - Extremity (Nontraumatic) MDM Narrative: Medical decision making narrative: Discussed with patient findings of left knee x-ray including chondroid tumor in the distal femoral diaphysis. I discussed radiology interpretation as most likely an enchondroma. Primary care physician is at [place], copy of CD was given to the patient and she has a follow-up appointment next week with primary care. No acute displaced fracture or dislocation noted by radiologist. Imaging Data^: Other Xray: Radiologist's impression: [address] [address] XRay Report Signed Patient: Chrissy Perez Unit #: [id number] : 1950 Age/Sex: 70 / F ADM Date: 11/10/20 Loc: ER Room/Bed: Attending Dr: Ordering Provider/Ordering MD: Cornell Nassar MD Date of Service: 11/10/20 Procedure(s): XR knee LT 3V* [id number] Accession Number(s): [id number] Report Number: [id number] PROCEDURE INFORMATION: Exam: XR Left Knee Exam date and time: 11/10/2020 7:28 PM Age: 70 years old Clinical indication: Injury or trauma; Fall; Blunt trauma; Knee; Left; Prior surgery; Surgery type: Meniscus TECHNIQUE: Imaging protocol: XR Left knee. Views: 3 views. COMPARISON: No relevant prior studies available. FINDINGS: Bones/joints: A lobulated, mixed sclerotic and lucent lesion in the distal femoral diaphysis measures approximately 6 x 1.7 x 3 cm (SAT). No fracture or dislocation. Joint spaces are mildly narrowed in the medial and patellofemoral compartments. Joint effusion. Soft tissues: Prominent anterior soft tissue swelling. XR/XR knee LT 3V* [id number] IMPRESSION: 1. No acute displaced fracture or dislocation. 2. Prominent anterior soft tissue swelling and nonspecific joint effusion. 3. 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 A low-grade chondrosarcoma may appear similar. Consider follow-up with a repeat radiograph in 6 months. Dictated By: Joesph Cabrera Signed By: Joesph Cabrera Signed Date/Time: 11/10/202013 DD/ 11 Discharge Plan Discharge Patient Disposition: Home Clinical Impression: Abnormal x-ray of knee Contusion of knee, left Qualifiers: Encounter type: initial encounter Qualified Code(s): S80.02XA - Contusion of left knee, initial encounter Abrasion of knee, left Qualifiers: Encounter type: initial encounter Qualified Code(s): S80.212A - Abrasion, left knee, initial encounter Condition: Stable Prescriptions: No Action Eliquis 5 mg tablet 5 mg PO BID RF: 0 furosemide [Lasix] 20 mg tablet 10 mg PO QAM RF: 0 omeprazole magnesium [Prilosec OTC] 20 mg Tablet,Delayed Release (Dr/Ec) 20 mg PO DAILY@0730 RF: 0 Zyrtec 10 mg Capsule 10 mg PO DAILY@0730 RF: 0 levothyroxine 100 mcg Capsule 100 mcg PO DAILY@0730 RF: 0 spironolactone 25 mg tablet 50 mg PO DAILY@0730 RF: 0 ondansetron HCl [Zofran] 4 mg tablet 4 mg PO Q6H PRN (Reason: nausea and vomiting) Qty: 10 RF: 0 citalopram 20 mg tablet 20 mg PO DAILY@0730 RF: 0 Discharge Orders: Discharge ED (Routine); Ordered 11/10/20 Ordered By: Karis Barba Referrals: Uriel Joseph MD [Primary Care Provider] - Discharge Diet: Usual diet Discharge Activity: Limit activity as instructed Patient Instructions: Diphtheria/Acellular Pertussis/Tetanus Booster Vaccine (Tdap) (Injection), Contusion in Adults (ED), Knee Immobilizer (ED), Opioid Safety Activity Restrictions/Additional Instructions: Cool compresses to the left knee several times daily to help with pain and swelling Keep the left knee elevated to help with pain and swelling Continue ambulation with use of a walker to help with knee pain while walking Follow-up with your primary care provider as scheduled next week Follow-up x-ray of the left knee will be needed in 6 months to follow abnormality of the left femur. Continue follow-up with [place] Coding Level of Care Code ED Digital Production Artist for Grace Fwd Exam Comprehensive
[2020-11-10] MEDS: HYDROcodone-acetaminophen 5-325 mg Tablet 1 TAB PO (20:19)
[2020-11-10] MEDS: tetanus-dipt-pertussis 0.5 mL SDV IM (20:20)
== END 2020-11-10 21:25 | disposition home or self-care (01) ==
PROVIDERS: Emergency Provider Nurse Practitioner Family; PCP Family Medicine
DX: S80.02XA Contusion of left knee, initial encounter (principal); S80.212A Abrasion, left knee, initial encounter; Z79.01 Long term (current) use of anticoagulants; I10 Essential (primary) hypertension; W01.0XXA Fall on same level from slipping, tripping and stumbling without subsequent striking against object, initial encounter; R93.6 Abnormal findings on diagnostic imaging of limbs; Z23 Encounter for immunization
CPT/HCPCS: 29530; 73562; 90471; 90715; 99283

== ENCOUNTER 2021-06-22 23:21 | Emergency (ER) | payer MEDICARE, BC, SELFPAY ==
[2021-06-22 23:27] VITALS: BP 166/107; PULSE 87; RESP 22; TEMP 36.4; O2SAT 96; BMI 25.9
--- NOTE | 2021-06-22 23:34 | ECG_ITS ---
[facility] Test Date: 2021-06-23 Pat Name: Chrissy Perez Department: Room: Gender: Female Music Leader: : 1950 Requested By: Cornell Nassar Order Number: [id number] Reading MD: LELAND BAUTISTA Measurements Intervals [place] Rate: 110 P: -78 LA: 199 QRS: -77 QRSD: 115 T: 87 QT: 361 QTc: 490 Interpretive Statements SINUS TACHYCARDIA INFERIOR MYOCARDIAL INFARCTION , OF INDETERMINATE AGE [40+ ms Q WAVE AND/OR ST/T ABNORMALITY IN II/aVF] ANTEROLATERAL MYOCARDIAL INFARCTION , OF INDETERMINATE AGE [40+ ms Q WAVE IN I/aVL/V3-V6] Compared to ECG 08/06/2020 10:45:33 Atrial fibrillation no longer present Left-axis deviation no longer present Myocardial infarct finding still present Electronically Signed On 06-24-2021 0:01:26 CDT by LELAND BAUTISTA [id number]
--- NOTE | 2021-06-23 00:02 | W.ED.NAVMDI ---
HPI - Nausea/Vomiting/Diarrhea General: Chief complaint: Nausea/Vomiting/Diarrhea Stated complaint: N\V\D Dizzy Dehydrated Time Seen by Provider: 06/22/21 23:56 Source: patient Mode of arrival: ambulatory Limitations: no limitations History of Present Illness: HPI Narrative: 71-year-old female has a history of amyloidosis states she gets treatments for his treatment earlier this week she been having vomiting and diarrhea she states he gets this often after treatments states that she is feeling weak and lightheaded and dehydrated she denies any pain denies any fever denies any blood in her stool or vomit denies any worsening improving factors. Associated nausea: Yes Associated symtoms: Reports nausea; Denies chest pain, dysuria or headache(s) Review of Systems Const: Denies: fever(s), chills, body aches or change in appetite Eyes: Denies: blurry vision or eye discomfort ENMT: Denies: throat pain or dental pain Card: Denies: chest pain Resp: Denies: dyspnea GI: Reports: nausea, vomiting and diarrhea : Denies: dysuria Musc: Denies: neck pain or back pain Skin/Breast: Denies: rash Neuro: Denies: headache(s) Psych: Denies: depression Jesus/Lymph: Denies: easy bruising All/Imm: Denies: urticaria PFSH ED PFSH: Medical History Amyloidosis GERD (gastroesophageal reflux disease) Hypertension Hypothyroidism Surgical History Hx of cholecystectomy Family History Sister Amyloidosis Social History Smoking and tobacco status: never smoked Physical Exam Const: COMMON NORMALS: no acute distress, patient oriented x3 and healthy appearing HENMT: COMMON NORMALS: normocephalic and atraumatic HEAD & SCALP: normocephalic and atraumatic Eye: COMMON NORMALS: Equal, round and reactive pupils present and EOMs intact bilaterally PUPIL: Yes Equal, round and reactive pupils present Neck/C-Spine: COMMON NORMALS: full ROM and supple Chest: COMMONS NORMALS: normal inspection of the chest and normal palpation of entire chest wall Resp: COMMON NORMALS: normal respiratory effort, No retractions, No use of accessory muscles and clear to auscultation bilaterally AUSCULTATION: clear to auscultation bilaterally Cardio: COMMON NORMALS: regular rate, regular rhythm and No murmurs present (Cardio) RATE: regular rate RHYTHM: regular rhythm GI: COMMON NORMALS: Normal to inspection, nondistended, normoactive bowel sounds present, Soft to palpation, non-tender and no masses PALPATION: Yes Soft to palpation Extremity: COMMON NORMALS: normal to inspection and full ROM Neuro: COMMON NORMALS: patient oriented x3, moves all extremities and no focal motor deficits Psych: COMMON NORMALS: mental status grossly normal, Normal thought process present and cooperative THOUGHT PROCESS: Normal thought process present Skin: COMMON NORMALS: no rashes or lesions noted and no wounds GENERAL SKIN EXAM: no rashes or lesions noted Course Vital Signs: Vital signs: Vital Signs Temperature 97.6 F 06/22/21 23:27 Pulse Rate 87 06/22/21 23:27 Respiratory Rate 22 H 06/22/21 23:27 Blood Pressure 166/107 06/22/21 23:27 Pulse Oximetry 96 06/22/21 23:27 MDM - Nausea/Vomiting/Diarrhea MDM Narrative: Medical decision making narrative: Patient presents here with vomiting and diarrhea likely from her recent chemo treatment she feels much improved here after Reglan Lomotil and IV fluids she said no more vomiting she is well-appearing her abdominal exam is benign she is stable for discharge with follow-up PCP and return if worsening. Lab Data: Labs: Lab Results 06/22/21 06/22/21 23:52 23:52 WBC 9.8 10^3/uL 10^3/ uL (4.0-10.0) RBC 5.13 10^6/uL 10^6 /uL (4.1-5.3) Hgb 15.4 g/dL H g/dL (11.5-15.3) Hct 44.3 % % (37.0-47.0) MCV 86.4 fl fl (81-99) MCH 30.0 pg pg (28.0-34.0) MCHC 34.8 g/dL g/dL (30.0-36.0) RDW 13.6 % % (12.1-15.1) Plt Count 191 10^3/cmm 10^3 /cmm (130-400) MPV 10.3 fL fL (7.4-10.4) Neut % (Auto) 84.6 % % Lymph % (Auto) 10.0 % % [place]unn[place] % (Auto) 3.7 % % Eos % (Auto) 1.0 % % Baso % (Auto) 0.4 % % Neut # (Auto) 8.31 10^3/uL H 10 ^3/uL (1.8-7.7) Lymph # (Auto) 1.0 10^3/uL 10^3/ uL (0.8-4.8) Runnels # (Auto) 0.4 10^3/uL 10^3/ uL (0.2-0.9) Eos # (Auto) 0.1 10^3/uL 10^3/ uL (0.0-0.8) Baso # (Auto) 0.0 10^3/uL 10^3/ uL (0.0-0.1) Nucleated RBC % (a uto) 0 % % Nucleated RBCs # 0.0 /100WBC /100W BC Sodium 135 mmol/L L mmol /L (136-145) Potassium 4.4 mmol/L mmol/L (3.5-5.1) Chloride 97 mmol/L L mmol/ L (98-107) Carbon Dioxide 19 mmol/L L mmol/ L (22-29) Anion Gap 23.4 H (5-19) BUN 20 mg/dL mg/dL (8-23) Creatinine 0.8 mg/dL mg/dL (0.5-0.9) GFR Calculation Not Reportable Glucose 158 mg/dL H mg/dL (65-115) Calculated Osmolal ity 286 mOsm/kg mOsm/ kg (285-295) Calcium 9.1 mg/dL mg/dL (8.5-10.5) Total Bilirubin 0.9 mg/dL mg/dL (0.15-1.2) AST 48 U/L H U/L (0-32) ALT 33 U/L U/L (0-33) Alkaline Phosphata se 144 IU/L H IU/L (35-105) Total Protein 7.9 g/dL g/dL (6.6-8.7) Albumin 4.4 g/dL g/dL (3.5-5.2) Globulin 3.5 g/dL g/dL (1.3-4.6) Lipase 35 U/L U/L (13-60) Discharge Plan Discharge Patient Disposition: Home Clinical Impression: Diarrhea Vomiting Qualifiers: Vomiting type: unspecified Vomiting Intractability: non-intractable Nausea presence: with nausea Qualified Code(s): R11.2 - Nausea with vomiting, unspecified Condition: Stable Prescriptions: New Reglan 10 mg tablet 10 mg PO Q6H PRN (Reason: nausea and vomiting) Qty: 20 RF: 0 No Action Eliquis 5 mg tablet 5 mg PO BID RF: 0 furosemide [Lasix] 20 mg tablet 10 mg PO QAM RF: 0 lorazepam 0.5 mg tablet 0.5 mg PO .prn PRNRF: 0 omeprazole magnesium [Prilosec OTC] 20 mg Tablet,Delayed Release (Dr/Ec) 20 mg PO DAILY@0730 RF: 0 Zyrtec 10 mg Capsule 10 mg PO DAILY@0730 RF: 0 levothyroxine 100 mcg Capsule 100 mcg PO DAILY@0730 RF: 0 spironolactone 25 mg tablet 50 mg PO DAILY@0730 RF: 0 ondansetron HCl [Zofran] 4 mg tablet 4 mg PO Q6H PRN (Reason: nausea and vomiting) Qty: 10 RF: 0 citalopram 20 mg tablet 20 mg PO DAILY@0730 RF: 0 Discharge Orders: Discharge ED (Routine); Ordered 06/23/21 Ordered By: Cornell Nassar Referrals: Uriel Joseph MD [Primary Care Provider] - Discharge Diet: Advance as tolerated Discharge Activity: Resume usual activity Patient Instructions: Acute Nausea and Vomiting (ED) Coding Level of Care Code ED Laborer Shaft Sinking for Dayag Fwd Exam Comprehensive
[2021-06-23] MEDS: sodium chloride 0.9% 1,000 ML 999 ML IV (00:03)
[2021-06-23 00:04] LABS: Basophils % 0.4 %; Eosinophils # 0.1 10^3/uL (0.0-0.8); Hematocrit 44.3 % (37.0-47.0); Hemoglobin 15.4 g/dL (11.5-15.3); Mean Corpuscular HGB Conc 34.8 g/dL (30.0-36.0); Mean Corpuscular Volume 86.4 fl (81-99); Mean Platelet Volume 10.3 fL (7.4-10.4); Monocytes # 0.4 10^3/uL (0.2-0.9); Monocytes % 3.7 %; Neutrophils # 8.31 10^3/uL (1.8-7.7); Neutrophils % 84.6 %; Nucleated Red Blood Cells % 0 %; Platelet Count 191 10^3/cmm (130-400); Red Blood Count 5.13 10^6/uL (4.1-5.3); Red Cell Distribution Width 13.6 % (12.1-15.1); White Blood Count 9.8 10^3/uL (4.0-10.0)
[2021-06-23] MEDS: diphenhydrAMINE 50 mg/mL SDV 1mL 25 MG IVP (00:09)
[2021-06-23] MEDS: metoclopramide 5 mg/mL SDV 2 mL IVP (00:10)
[2021-06-23] MEDS: diphenoxylate/atropine Tablet 1 TAB PO (00:11)
[2021-06-23 00:33] LABS: Alanine Aminotransferase 33 U/L (0-33); Albumin Level 4.4 g/dL (3.5-5.2); Alkaline Phosphatase 144 IU/L (35-105); Blood Urea Nitrogen 20 mg/dL (8-23); Calcium 9.1 mg/dL (8.5-10.5); Carbon Dioxide 19 mmol/L (22-29); Chloride 97 mmol/L (98-107); Globulin 3.5 g/dL (1.3-4.6); Glucose 158 mg/dL (65-115); Lipase 35 U/L (13-60); Osmolality Calculated 286 mOsm/kg (285-295); Sodium 135 mmol/L (136-145); Total Bilirubin 0.9 mg/dL (0.15-1.2); Total Protein 7.9 g/dL (6.6-8.7)
[2021-06-23 00:36] LABS: Anion Gap 23.4 (5-19); Aspartate Amino Transferase 48 U/L (0-32); Potassium 4.4 mmol/L (3.5-5.1)
[2021-06-23 01:40] VITALS: BP 147/68; O2SAT 100
[2021-06-23] MEDS: sodium chloride 0.9% 500 ML 999 ML IV (02:13)
== END 2021-06-23 01:45 | disposition home or self-care (01) ==
PROVIDERS: Emergency Provider Emergency Medicine; PCP Family Medicine
DX: R11.2 Nausea with vomiting, unspecified (principal); R19.7 Diarrhea, unspecified; Z79.01 Long term (current) use of anticoagulants; I10 Essential (primary) hypertension
CPT/HCPCS: 80053; 83690; 85025; 93005; 96361; 96374; 96375; 99283; J1200; J2765; J7030; J7040

== ENCOUNTER → 2021-10-24 09:29 | Outpatient (BNVA) | payer MEDICARE, BC, SELFPAY | PROVIDERS: PCP Family Medicine; Referring Provider Family Medicine; Visit Provider Podiatrist Foot & Ankle Surgery | DX: M79.671 Pain in right foot (principal); M72.2 Plantar fascial fibromatosis | CPT/HCPCS: 73630 ==

== ENCOUNTER 2022-01-25 11:57 | Outpatient (CLI) | payer MEDICARE, BC, SELFPAY ==
--- NOTE | 2022-01-25 12:09 | XR_ITS ---
WS: [id number] Exam: XR chest 2V* [id number] Date/Time of Exam: 01/25/2022 12:11 PM Reason For Exam: Post covid SOB Comparison 08/06/2020. The lungs are clear and fully inflated. Heart size top limits normal. Small battery pack superimposes the heart. No pleural effusions. The mediastinum and osseous thorax are unremarkable. XR/XR chest 2V* [id number] IMPRESSION: 1. No acute cardiopulmonary finding.
== END 2022-01-25 11:58 | disposition home or self-care (01) ==
LOC: RAD 12:03
PROVIDERS: PCP Nurse Practitioner Family; Visit Provider Nurse Practitioner Family
DX: R06.02 Shortness of breath (principal)
CPT/HCPCS: 71046

== ENCOUNTER → 2022-01-31 15:49 | Outpatient (BNVA) | payer MEDICARE, BC, SELFPAY | PROVIDERS: PCP Nurse Practitioner Family; Visit Provider Nurse Practitioner Family | DX: E03.9 Hypothyroidism, unspecified (principal) | CPT/HCPCS: 84443 ==

== ENCOUNTER 2022-02-21 11:58 | Outpatient (CLI) | payer MEDICARE, BC, SELFPAY ==
--- NOTE | 2022-02-21 12:03 | MM_ITS ---
WS: [id number] SCREENING DIGITAL BREAST TOMOSYNTHESIS MAMMOGRAM WITH CAD HISTORY: Screening COMPARISON: 08/03/2019 and 12/16/2013 Bilateral CC and MLO with tomosynthesis and synthetic mammography submitted. Computer aided detection analyzed. Breast composition: There are scattered areas of fibroglandular density. Scattered bilateral calcific ations. There is a new nodule measuring 4 mm in the mid RIGHT breast seen posterior to the nipple. On the CC projection there is a small cluster of asymmetries just posterior and lateral to the nipple. Cannot determine which nodule corresponds to the new nodule seen on the lateral projection. MM/[place] [id number] IMPRESSION: BI-RADS: 0-Incomplete: Need additional imaging evaluation FOLLOW UP: Need Additional Imaging RIGHT breast: Spot compression views (CC and MLO). True ML. Ultrasound to follo w if abnormality persists.
== END 2022-02-21 11:59 | disposition home or self-care (01) ==
LOC: RAD 11:59
PROVIDERS: PCP Nurse Practitioner Family; Visit Provider Nurse Practitioner Family
DX: Z12.31 Encounter for screening mammogram for malignant neoplasm of breast (principal)
CPT/HCPCS: 77063; 77067

== ENCOUNTER 2022-03-15 10:46 | Outpatient (CLI) | payer MEDICARE, BC, SELFPAY ==
--- NOTE | 2022-03-15 11:00 | MM_ITS ---
WS: [id number] ADDITIONAL VIEWS RIGHT MAMMOGRAM WITH DIGITAL BREAST TOMOSYNTHESIS. HISTORY: Asymmetry and nodule in the anterior breast. COMPARISON: 08/03/2019, 02/21/2022 Spot compression views RIGHT breast in CC, MLO projections and true ML submitted with digital breast tomosynthesis and SM. The asymmetries and nodules in the RIGHT breast resolves with additional views. No persistent nodule or mass. Benign calcifications. MM/[place] [id number] IMPRESSION: BI-RADS: 2-Benign FOLLOW UP: 1 Year Follow-up
== END 2022-03-15 10:47 | disposition home or self-care (01) ==
LOC: RAD 10:46
PROVIDERS: PCP Nurse Practitioner Family; Visit Provider Nurse Practitioner Family
DX: R92.8 Other abnormal and inconclusive findings on diagnostic imaging of breast (principal); N64.89 Other specified disorders of breast
CPT/HCPCS: 77061

== ENCOUNTER 2022-07-29 16:18 | Emergency (ER) | payer MEDICARE, BC, SELFPAY ==
[2022-07-29 16:24] VITALS: BP 121/87; PULSE 91; RESP 16; TEMP 36.7; O2SAT 95
--- NOTE | 2022-07-29 17:08 | W.ED.NAVMDI ---
Documented by User: Melvin Feliciano MD 08/07/22 16:03 HPI - Nausea/Vomiting/Diarrhea General: Chief complaint: Nausea/Vomiting/Diarrhea Stated complaint: possibly dehydrated Time Seen by Provider: 07/29/22 17:08 History of Present Illness: Ms. Perez is a 72-year-old lady with complex past medical history including amyloidosis presenting to the emergency department due to concern over dehydration. She reports last week having a knee arthroscopy with meniscus repair which she tolerated well. Starting approximately 3 days ago she began having generalized illness. She endorses multiple episodes of nonbilious and nonbloody emesis as well as diarrhea. She has generalized abdominal cramping. She feels weak which is generalized and not focal. Intensity symptoms is moderate. Course is worsened. She reports history of dehydration related to her amyloidosis requiring IV fluids in the past. No other specific changes in health, exacerbating, or alleviating factors identified. Onset (ago): day(s) Description of vomiting: watery Description of diarrhea: watery Associated nausea: Yes Associated abdominal pain: Yes Location of pain: Diffuse Pain consistency: intermittent Severity: moderate Quality: cramping Exacerbating factors: eating and exertion Relieving factors: none Context: recent surgery/procedure Associated symtoms: Reports nausea Review of Systems General: Reports: 10 or more systems reviewed and unremarkable except in HPI and below GI: Reports: nausea PFSH ED PFSH: Medical History Amyloidosis Family history of breast cancer in sister GERD (gastroesophageal reflux disease) Hodgkin lymphoma Hypertension Hypothyroidism Thyroid cancer Surgical History Hx of cholecystectomy Family History Sister Amyloidosis Cancer, Onset Age: 70 Sister Cancer, Onset Age: 60 Brother Amyloidosis Social History Smoking and tobacco status: never smoked Physical Exam Const: COMMON NORMALS: alert GENERAL APPEARANCE: cooperative, well developed and ill appearing (Mildly) HENMT: COMMON NORMALS: normocephalic and atraumatic HEAD & SCALP: normocephalic and atraumatic THROAT: posterior oropharynx normal Eye: COMMON NORMALS: conjunctivae normal CONJUNCTIVA: Yes conjunctivae normal SCLERA: sclerae normal Neck/C-Spine: COMMON NORMALS: supple GENERAL: Yes trachea midline Resp: COMMON NORMALS: clear to auscultation bilaterally EFFORT & INSPECTION: Yes able to speak in complete sentences AUSCULTATION: clear to auscultation bilaterally Cardio: COMMON NORMALS: regular rate and regular rhythm RATE: regular rate RHYTHM: regular rhythm GI: COMMON NORMALS: Soft to palpation PALPATION: Yes Soft to palpation, No Tenderness to palpation present (GI), No Guarding due to palpation present (GI) and No Rigid due to palpation Extremity: NARRATIVE EXTREMITY EXAM: Operative site appears well-healing without evidence of infection. GENERAL: Yes normal exam except as noted and No edema Neuro: COMMON NORMALS: moves all extremities SENSORIUM/ORIENTATION: Yes alert and No Orientation impaired Psych: COMMON NORMALS: mental status grossly normal and Normal thought process present THOUGHT PROCESS: Normal thought process present Course Vital Signs: Vital signs: Vital Signs Temperature 98.0 F 07/29/22 16:24 Pulse Rate 91 07/29/22 16:24 Respiratory Rate 16 07/29/22 16:24 Blood Pressure 118/79 07/29/22 18:00 Pulse Oximetry 93 07/29/22 17:17 Oxygen Delivery Me thod 07/29/22 16:24 MDM - Nausea/Vomiting/Diarrhea Medical Decision Making 72-year-old lady presenting due to concern over nausea, vomiting, diarrhea. Exam as above. Patient is nontoxic and there is no evidence of acute surgical abdomen. No significant hematologic abnormalities, metabolic panel with some evidence of dehydration. Treatment ordered and patient handed off to overnight ED physician pending reassessment for ability to tolerate p.o. intake and disposition likely discharge. 72-year-old female checked out to me by the previous physician at shift change. This lady has been nauseated and vomiting. Her vitals are quite stable. Her laboratory is not terribly remarkable except for a slight increase in her creatinine. She was rehydrated. She is feeling much improved. No more episodes of vomiting. She would like to go home. She will be allowed home on Zofran. Urinalysis did not show convincing evidence of a urinary tract infection. Medical Records I reviewed the patient's medical records. Lab Data I reviewed the patient's lab results. 07/29/22 17:10 07/29/22 17:10 Laboratory Results WBC 9.6 10^3/uL (4.0-10.0) 07/29/22 17:10 RBC 4.77 10^6/uL (4.1-5.3) 07/29/22 17:10 Hgb 14.6 g/dL (11.5-15.3) 07/29/22 17:10 Hct 43.0 % (37.0-47.0) 07/29/22 17:10 MCV 90.1 fl (81-99) 07/29/22 17:10 MCH 30.6 pg (28.0-34.0) 07/29/22 17:10 MCHC 34.0 g/dL (30.0-36.0) 07/29/22 17:10 RDW 13.6 % (12.1-15.1) 07/29/22 17:10 Plt Count 249 10^3/cmm (130-400) 07/29/22 17:10 MPV 9.7 fL (7.4-10.4) 07/29/22 17:10 Neut % (Auto) 59.5 % 07/29/22 17:10 Lymph % (Auto) 33.3 % 07/29/22 17:10 Griggs % (Auto) 4.9 % 07/29/22 17:10 Eos % (Auto) 1.7 % 07/29/22 17:10 Baso % (Auto) 0.4 % 07/29/22 17:10 Neut # (Auto) 5.70 10^3/uL (1.8-7.7) 07/29/22 17:10 Lymph # (Auto) 3.2 10^3/uL (0.8-4.8) 07/29/22 17:10 [place]gs # (Auto) 0.5 10^3/uL (0.2-0.9) 07/29/22 17:10 Eos # (Auto) 0.2 10^3/uL (0.0-0.8) 07/29/22 17:10 Baso # (Auto) 0.0 10^3/uL (0.0-0.1) 07/29/22 17:10 Nucleated RBC % (auto) 0 % 07/29/22 17:10 Nucleated RBCs # 0.0 /100WBC 07/29/22 17:10 Sodium 130 mmol/L (136-145) L 07/29/22 17:10 Potassium 3.8 mmol/L (3.5-5.1) 07/29/22 17:10 Chloride 95 mmol/L (98-107) L 07/29/22 17:10 Carbon Dioxide 27 mmol/L (22-29) 07/29/22 17:10 Anion Gap 11.8 (5-19) 07/29/22 17:10 BUN 17 mg/dL (8-23) 07/29/22 17:10 Creatinine 1.3 mg/dL (0.5-0.9) H 07/29/22 17:10 GFR Calculation Not Reportable 07/29/22 17:10 Glucose 101 mg/dL (65-115) 07/29/22 17:10 Calculated Osmolality 272 mOsm/kg (285-295) L 07/29/22 17:10 Calcium 9.3 mg/dL (8.5-10.5) 07/29/22 17:10 Magnesium 2.2 mg/dL (1.7-2.3) 07/29/22 17:10 Total Bilirubin 0.6 mg/dL (0.15-1.2) 07/29/22 17:10 AST 25 U/L (0-32) 07/29/22 17:10 ALT 25 U/L (0-33) 07/29/22 17:10 Alkaline Phosphatase 112 U/L (35-105) H 07/29/22 17:10 Total Protein 7.0 g/dL (6.6-8.7) 07/29/22 17:10 Albumin 4.0 g/dL (3.5-5.2) 07/29/22 17:10 Globulin 3.0 g/dL (1.3-4.6) 07/29/22 17:10 Lipase 89 U/L (13-60) H 07/29/22 17:10 Urine Color Yellow (Yellow) 07/29/22 18: Urine Appearance Clear (CLEAR) 07/29/22 18:27 Urine pH 6 (5-7) 07/29/22 18:27 Ur Specific [place] 1.015 (1.005-1.030) 07/29/22 18:27 Urine Protein Neg (Negative) 07/29/22 18: Urine Glucose (UA) 4+ (Normal) H 07/29/22 18:27 Urine Ketones Negative (Negative) 07/29/22 18: Urine Blood Neg (Negative) 07/29/22 18: Urine Nitrate Negative (Negative) 07/29/22 18:27 Urine Bilirubin Neg (Negative) 07/29/22 18:27 Urine Urobilinogen Neg mg/dL (Negative) 07/29/22 18: Ur Leukocyte Esterase Trace (Negative) H 07/29/22 18:27 Urine RBC 0-4 /hpf (0-2) H 07/29/22 18:27 Urine WBC 5-10 /hpf (0-5) H 07/29/22 18:27 Ur Squamous Epith Cells Rare /hpf (0-5) 07/29/22 18: Amorphous Sediment Not Reportable 07/29/22 18: Urine Bacteria Trace /hpf (NONE) 07/29/22 18:27 Discharge Plan Discharge Patient Disposition: Home Clinical Impression: Dehydration, Nausea, vomiting, and diarrhea Condition: Stable Prescriptions: New ondansetron 4 mg film 4 mg PO DAILY PRN (Reason: nausea and vomiting) Qty: 10 0RF Discontinued ondansetron HCl [Zofran] 4 mg tablet 4 mg PO Q6H PRN (Reason: nausea and vomiting) Qty: 10 0RF Rx Instructions: SEE PHARMACY COMMENTS No Action Eliquis 5 mg tablet 5 mg PO BID furosemide [Lasix] 20 mg tablet 10 mg PO QAM lorazepam 0.5 mg tablet 0.5 mg PO .prn PRN midodrine 5 mg tablet 5 mg PO TID Rx Instructions: do not give last dose of day after 6PM or within 4 hrs of bedtime diphenoxylate-atropine [Lomotil] 2.5-0.025 mg tablet 1 tab PO BID PRN budesonide-formoterol [Symbicort] 160-4.5 mcg/actuation HFA aerosol inhaler 1 inh inhalation BID Qty: 10.2 0RF Rx Instructions: 340 B escitalopram oxalate [Lexapro] 10 mg tablet 10 mg PO DAILY Qty: 90 3RF benzonatate 100 mg capsule 100 mg PO TID Qty: 30 0RF levothyroxine 100 mcg capsule 100 mcg PO DAILY@0730 Qty: 90 2RF Rx Instructions: SEE PHARMACY COMMENTS nitrofurantoin monohyd/m-cryst [Macrobid] 100 mg capsule 100 mg PO BID Qty: 10 0RF Rx Instructions: must administer with a meal/food omeprazole magnesium [Prilosec OTC] 20 mg Tablet,Delayed Release (Dr/Ec) 20 mg PO DAILY@0730 Rx Instructions: SEE PHARMACY COMMENTS Zyrtec 10 mg Capsule 10 mg PO DAILY@0730 Rx Instructions: SEE PHARMACY COMMENTS spironolactone 25 mg tablet 50 mg PO DAILY@0730 Rx Instructions: SEE PHARMACY COMMENTS Discharge Orders: Discharge ED (Routine); Ordered 07/29/22 Ordered By: Carlitos King Referrals: Suri Morrow FNP-C [Primary Care Provider] - Discharge Diet: Advance as tolerated and Clear Liquid Discharge Activity: Increase activity as tolerated Patient Instructions: Dehydration (ED), Acute Nausea and Vomiting (ED), Opioid Safety, Pain Management Activity Restrictions/Additional Instructions: Thank you for visiting the emergency department. You were seen and evaluated for nausea, vomiting, and diarrhea. The exact cause your symptoms is unclear though may be related to viral syndrome. You were found to be dehydrated. Please ensure that you are staying hydrated. Take the medication you were presribed every 4 hours while awake for the next 24 hours, then as needed following. Please follow-up with your primary care provider for repeat laboratory studies within 1 week. Return to the emergency department for worsening symptoms or anything else that you are concerned about a feel needs emergency department evaluation. Coding Level of Care Code ED Pension Administrator for [facility] Documented by User: Carlitos King, 07/29/22 19:34 HPI - Nausea/Vomiting/Diarrhea General: Chief complaint: Nausea/Vomiting/Diarrhea Stated complaint: possibly dehydrated Time Seen by Provider: 07/29/22 17:08 [facility] ED PFSH: Medical History Amyloidosis Family history of breast cancer in sister GERD (gastroesophageal reflux disease) Hodgkin lymphoma Hypertension Hypothyroidism Thyroid cancer Surgical History Hx of cholecystectomy Family History Sister Amyloidosis Cancer, Onset Age: 70 Sister Cancer, Onset Age: 60 Brother Amyloidosis Social History Smoking and tobacco status: never smoked Course Vital Signs: Vital signs: Vital Signs Temperature 98.0 F 07/29/22 16:24 Pulse Rate 91 07/29/22 16:24 Respiratory Rate 16 07/29/22 16:24 Blood Pressure 118/79 07/29/22 18:00 Pulse Oximetry 93 07/29/22 17:17 Oxygen Delivery Me thod 07/29/22 16:24 MDM - Nausea/Vomiting/Diarrhea Medical Decision Making 72-year-old female checked out to me by the previous physician at shift change. This lady has been nauseated and vomiting. Her vitals are quite stable. Her laboratory is not terribly remarkable except for a slight increase in her creatinine. She was rehydrated. She is feeling much improved. No more episodes of vomiting. She would like to go home. She will be allowed home on Zofran. Urinalysis did not show convincing evidence of a urinary tract infection. Lab Data 07/29/22 17:10 07/29/22 17:10 Laboratory Results WBC 9.6 10^3/uL (4.0-10.0) 07/29/22 17:10 RBC 4.77 10^6/uL (4.1-5.3) 07/29/22 17:10 Hgb 14.6 g/dL (11.5-15.3) 07/29/22 17:10 Hct 43.0 % (37.0-47.0) 07/29/22 17:10 MCV 90.1 fl (81-99) 07/29/22 17:10 MCH 30.6 pg (28.0-34.0) 07/29/22 17:10 MCHC 34.0 g/dL (30.0-36.0) 07/29/22 17:10 RDW 13.6 % (12.1-15.1) 07/29/22 17:10 Plt Count 249 10^3/cmm (130-400) 07/29/22 17:10 MPV 9.7 fL (7.4-10.4) 07/29/22 17:10 Neut % (Auto) 59.5 % 07/29/22 17:10 Lymph % (Auto) 33.3 % 07/29/22 17:10 Griggs % (Auto) 4.9 % 07/29/22 17:10 Eos % (Auto) 1.7 % 07/29/22 17:10 Baso % (Auto) 0.4 % 07/29/22 17:10 Neut # (Auto) 5.70 10^3/uL (1.8-7.7) 07/29/22 17:10 Lymph # (Auto) 3.2 10^3/uL (0.8-4.8) 07/29/22 17:10 [place]gs # (Auto) 0.5 10^3/uL (0.2-0.9) 07/29/22 17:10 Eos # (Auto) 0.2 10^3/uL (0.0-0.8) 07/29/22 17:10 Baso # (Auto) 0.0 10^3/uL (0.0-0.1) 07/29/22 17:10 Nucleated RBC % (auto) 0 % 07/29/22 17:10 Nucleated RBCs # 0.0 /100WBC 07/29/22 17:10 Sodium 130 mmol/L (136-145) L 07/29/22 17:10 Potassium 3.8 mmol/L (3.5-5.1) 07/29/22 17:10 Chloride 95 mmol/L (98-107) L 07/29/22 17:10 Carbon Dioxide 27 mmol/L (22-29) 07/29/22 17:10 Anion Gap 11.8 (5-19) 07/29/22 17:10 BUN 17 mg/dL (8-23) 07/29/22 17:10 Creatinine 1.3 mg/dL (0.5-0.9) H 07/29/22 17:10 GFR Calculation Not Reportable 07/29/22 17:10 Glucose 101 mg/dL (65-115) 07/29/22 17:10 Calculated Osmolality 272 mOsm/kg (285-295) L 07/29/22 17:10 Calcium 9.3 mg/dL (8.5-10.5) 07/29/22 17:10 Magnesium 2.2 mg/dL (1.7-2.3) 07/29/22 17:10 Total Bilirubin 0.6 mg/dL (0.15-1.2) 07/29/22 17:10 AST 25 U/L (0-32) 07/29/22 17:10 ALT 25 U/L (0-33) 07/29/22 17:10 Alkaline Phosphatase 112 U/L (35-105) H 07/29/22 17:10 Total Protein 7.0 g/dL (6.6-8.7) 07/29/22 17:10 Albumin 4.0 g/dL (3.5-5.2) 07/29/22 17:10 Globulin 3.0 g/dL (1.3-4.6) 07/29/22 17:10 Lipase 89 U/L (13-60) H 07/29/22 17:10 Urine Color Yellow (Yellow) 07/29/22 18:27 Urine Appearance Clear (CLEAR) 07/29/22 18:27 Urine pH 6 (5-7) 07/29/22 18:27 Ur Specific [place] 1.015 (1.005-1.030) 07/29/22 18:27 Urine Protein Neg (Negative) 07/29/22 18:27 Urine Glucose (UA) 4+ (Normal) H 07/29/22 18:27 Urine Ketones Negative (Negative) 07/29/22 18:27 Urine Blood Neg (Negative) 07/29/22 18:27 Urine Nitrate Negative (Negative) 07/29/22 18:27 Urine Bilirubin Neg (Negative) 07/29/22 18:27 Urine Urobilinogen Neg mg/dL (Negative) 07/29/22 18:27 Ur Leukocyte Esterase Trace (Negative) H 07/29/22 18:27 Urine RBC 0-4 /hpf (0-2) H 07/29/22 18:27 Urine WBC 5-10 /hpf (0-5) H 07/29/22 18:27 Ur Squamous Epith Cells Rare /hpf (0-5) 07/29/22 18:27 Amorphous Sediment Not Reportable 07/29/22 18:27 Urine Bacteria Trace /hpf (NONE) 07/29/22 18:27 Discharge Plan Discharge Patient Disposition: Home Clinical Impression: Dehydration, Nausea, vomiting, and diarrhea Condition: Stable Prescriptions: New ondansetron 4 mg film 4 mg PO DAILY PRN (Reason: nausea and vomiting) Qty: 10 0RF Discontinued ondansetron HCl [Zofran] 4 mg tablet 4 mg PO Q6H PRN (Reason: nausea and vomiting) Qty: 10 0RF Rx Instructions: SEE PHARMACY COMMENTS No Action Eliquis 5 mg tablet 5 mg PO BID furosemide [Lasix] 20 mg tablet 10 mg PO QAM lorazepam 0.5 mg tablet 0.5 mg PO .prn PRN midodrine 5 mg tablet 5 mg PO TID Rx Instructions: do not give last dose of day after 6PM or within 4 hrs of bedtime diphenoxylate-atropine [Lomotil] 2.5-0.025 mg tablet 1 tab PO BID PRN budesonide-formoterol [Symbicort] 160-4.5 mcg/actuation HFA aerosol inhaler 1 inh inhalation BID Qty: 10.2 0RF Rx Instructions: 340 B escitalopram oxalate [Lexapro] 10 mg tablet 10 mg PO DAILY Qty: 90 3RF benzonatate 100 mg capsule 100 mg PO TID Qty: 30 0RF levothyroxine 100 mcg capsule 100 mcg PO DAILY@0730 Qty: 90 2RF Rx Instructions: SEE PHARMACY COMMENTS nitrofurantoin monohyd/m-cryst [Macrobid] 100 mg capsule 100 mg PO BID Qty: 10 0RF Rx Instructions: must administer with a meal/food omeprazole magnesium [Prilosec OTC] 20 mg Tablet,Delayed Release (Dr/Ec) 20 mg PO DAILY@0730 Rx Instructions: SEE PHARMACY COMMENTS Zyrtec 10 mg Capsule 10 mg PO DAILY@0730 Rx Instructions: SEE PHARMACY COMMENTS spironolactone 25 mg tablet 50 mg PO DAILY@0730 Rx Instructions: SEE PHARMACY COMMENTS Discharge Orders: Discharge ED (Routine); Ordered 07/29/22 Ordered By: Carlitos King Referrals: Suri Morrow FNP-C [Primary Care Provider] - Discharge Diet: Advance as tolerated and Clear Liquid Discharge Activity: Increase activity as tolerated Patient Instructions: Dehydration (ED), Acute Nausea and Vomiting (ED), Opioid Safety, Pain Management Activity Restrictions/Additional Instructions: Thank you for visiting the emergency department. You were seen and evaluated for nausea, vomiting, and diarrhea. The exact cause your symptoms is unclear though may be related to viral syndrome. You were found to be dehydrated. Please ensure that you are staying hydrated. Take the medication you were presribed every 4 hours while awake for the next 24 hours, then as needed following. Please follow-up with your primary care provider for repeat laboratory studies within 1 week. Return to the emergency department for worsening symptoms or anything else that you are concerned about a feel needs emergency department evaluation. Coding Level of Care Code ED Pension Administrator for [facility]
[2022-07-29 17:17] VITALS: BP 91/65; O2SAT 93
[2022-07-29 17:26] LABS: Basophils % 0.4 %; Eosinophils # 0.2 10^3/uL (0.0-0.8); Eosinophils % 1.7 %; Hemoglobin 14.6 g/dL (11.5-15.3); Lymphocytes # 3.2 10^3/uL (0.8-4.8); Lymphocytes % 33.3 %; Mean Corpuscular Hemoglobin 30.6 pg (28.0-34.0); Mean Corpuscular Volume 90.1 fl (81-99); Mean Platelet Volume 9.7 fL (7.4-10.4); Monocytes # 0.5 10^3/uL (0.2-0.9); Monocytes % 4.9 %; Neutrophils % 59.5 %; Nucleated Red Blood Cells % 0 %; Platelet Count 249 10^3/cmm (130-400); Red Blood Count 4.77 10^6/uL (4.1-5.3); Red Cell Distribution Width 13.6 % (12.1-15.1); White Blood Count 9.6 10^3/uL (4.0-10.0)
[2022-07-29 17:30] VITALS: BP 105/53
[2022-07-29] MEDS: ketorolac 30 mg/mL INJ 15 MG IVP (17:41)
[2022-07-29] MEDS: ondansetron 2 mg/ML SDV 2 mL 4 MG IVP (17:41)
[2022-07-29] MEDS: sodium chloride 0.9% 1,000 ML 999 ML IV (17:41)
[2022-07-29 17:42] LABS: Alanine Aminotransferase 25 U/L (0-33); Alkaline Phosphatase 112 U/L (35-105); Anion Gap 11.8 (5-19); Aspartate Amino Transferase 25 U/L (0-32); Blood Urea Nitrogen 17 mg/dL (8-23); Calcium 9.3 mg/dL (8.5-10.5); Carbon Dioxide 27 mmol/L (22-29); Chloride 95 mmol/L (98-107); Glucose 101 mg/dL (65-115); Lipase 89 U/L (13-60); Magnesium 2.2 mg/dL (1.7-2.3); Osmolality Calculated 272 mOsm/kg (285-295); Potassium 3.8 mmol/L (3.5-5.1); Sodium 130 mmol/L (136-145); Total Bilirubin 0.6 mg/dL (0.15-1.2)
[2022-07-29 18:00] VITALS: BP 118/79
[2022-07-29 19:25] LABS: Urine Appearance Clear (CLEAR); Urine Color Yellow (Yellow)
[2022-07-29 19:26] LABS: Add Urine Microscopic? YES; Bilirubin Urine Neg (Negative); Blood Urine Neg (Negative); Glucose Urine UA 4+ (Normal); Ketones Urine Negative (Negative); Leukocyte Esterase Urine Trace (Negative); Nitrate Urine Negative (Negative); Protein Urine Neg (Negative); Specific Gravity, Urine 1.015 (1.005-1.030); Urobilinogen Urine Neg (Negative); pH Urine 6 (5-7)
[2022-07-29 19:28] LABS: Add Urine Culture? No; Bacteria Urine TRACE /hpf; RBC Urine 0-4 /hpf (0-2); Squamous Epithelial Cell Urine RARE /hpf (0-5)
== END 2022-07-29 19:45 | disposition home or self-care (01) ==
PROVIDERS: Emergency Medicine; Emergency Provider Emergency Medicine; PCP Nurse Practitioner Family
DX: E86.0 Dehydration (principal); R11.2 Nausea with vomiting, unspecified; R19.7 Diarrhea, unspecified; Z79.01 Long term (current) use of anticoagulants; I10 Essential (primary) hypertension; Z85.71 Personal history of Hodgkin lymphoma; Z85.850 Personal history of malignant neoplasm of thyroid
CPT/HCPCS: 80053; 81001; 83690; 83735; 85025; 96361; 96374; 96375; 99284; J1885; J2405; J7030

== ENCOUNTER 2022-08-28 06:00 | Outpatient (RCR) | payer MEDICARE, BC, SELFPAY | END 2022-09-18 23:59 | disposition home or self-care (01) | LOC: TPT 06:00 | PROVIDERS: PCP Nurse Practitioner Family; Visit Provider Orthopaedic Surgery | DX: Z47.89 Encounter for other orthopedic aftercare (principal) | CPT/HCPCS: 97110; 97162 ==

== ENCOUNTER 2022-09-19 06:00 | Outpatient (RCR) | payer MEDICARE, BC, SELFPAY | END 2022-10-16 23:59 | disposition home or self-care (01) | LOC: TPT 06:00 | PROVIDERS: PCP Nurse Practitioner Family; Visit Provider Orthopaedic Surgery | DX: Z47.89 Encounter for other orthopedic aftercare (principal) | CPT/HCPCS: 97110 ==

== ENCOUNTER 2022-10-17 06:00 | Outpatient (RCR) | payer MEDICARE, BC, SELFPAY | END 2022-11-16 23:59 | disposition home or self-care (01) | LOC: TPT 06:00 | PROVIDERS: PCP Nurse Practitioner Family; Visit Provider Orthopaedic Surgery | DX: Z47.89 Encounter for other orthopedic aftercare (principal) | CPT/HCPCS: 97110; 97140 ==

== ENCOUNTER 2022-11-17 06:00 | Outpatient (RCR) | payer MEDICARE, BC, SELFPAY | END 2022-12-04 23:59 | disposition home or self-care (01) | LOC: TPT 06:00 | PROVIDERS: PCP Nurse Practitioner Family; Visit Provider Orthopaedic Surgery | DX: Z47.89 Encounter for other orthopedic aftercare (principal) | CPT/HCPCS: 97164 ==

== ENCOUNTER 2023-03-28 13:26 | Emergency (ER) | payer MEDICARE, BC, SELFPAY ==
[2023-03-28 13:59] LABS: Basophils % 0.4 %; Eosinophils # 0.2 10^3/uL (0.0-0.8); Eosinophils % 1.7 %; Hematocrit 38.5 % (37.0-47.0); Hemoglobin 13.1 g/dL (11.5-15.3); Lymphocytes # 2.3 10^3/uL (0.8-4.8); Lymphocytes % 21.3 %; Mean Corpuscular Hemoglobin 30.4 pg (28.0-34.0); Mean Corpuscular Volume 89.3 fl (81-99); Mean Platelet Volume 9.4 fL (7.4-10.4); Monocytes # 0.6 10^3/uL (0.2-0.9); Monocytes % 5.4 %; Neutrophils # 7.58 10^3/uL (1.8-7.7); Neutrophils % 70.9 %; Nucleated Red Blood Cells % 0 %; Platelet Count 214 10^3/cmm (130-400); Red Blood Count 4.31 10^6/uL (4.1-5.3); Red Cell Distribution Width 13.6 % (12.1-15.1); White Blood Count 10.7 10^3/uL (4.0-10.0)
[2023-03-28 14:02] LABS: INR 1.15 (0.8-1.2)
[2023-03-28 14:15] VITALS: BMI 25.6
[2023-03-28 14:18] VITALS: BP 102/76; PULSE 92; RESP 16; TEMP 36.6; O2SAT 93
[2023-03-28 14:19] LABS: Alanine Aminotransferase 19 U/L (0-33); Alkaline Phosphatase 119 U/L (35-105); Anion Gap 14.7 (5-19); Aspartate Amino Transferase 25 U/L (0-32); Blood Urea Nitrogen 19 mg/dL (8-23); Calcium 8.9 mg/dL (8.5-10.5); Carbon Dioxide 27 mmol/L (22-29); Chloride 99 mmol/L (98-107); Globulin 2.6 g/dL (1.3-4.6); Glucose 98 mg/dL (65-115); Lipase 27 U/L (13-60); Osmolality Calculated 286 mOsm/kg (285-295); Potassium 3.7 mmol/L (3.5-5.1); Sodium 137 mmol/L (136-145); Total Bilirubin 0.6 mg/dL (0.15-1.2); Total Protein 6.6 g/dL (6.6-8.7)
== END 2023-03-28 17:50 | disposition left against medical advice (07) ==
PROVIDERS: Emergency Medicine; Emergency Provider Family Medicine; PCP Internal Medicine
DX: Z53.21 Procedure and treatment not carried out due to patient leaving prior to being seen by health care provider (principal)
CPT/HCPCS: 36415; 80053; 83690; 85025; 85610; 99283

== ENCOUNTER → 2024-04-28 15:14 | Outpatient (BNVA) | payer MEDICARE, BC, SELFPAY | PROVIDERS: PCP Internal Medicine; Visit Provider Podiatrist Foot & Ankle Surgery | DX: Q66.71 Congenital pes cavus, right foot; Q66.72 Congenital pes cavus, left foot; M25.373 Other instability, unspecified ankle; Z91.81 History of falling; R26.81 Unsteadiness on feet; E85.9 Amyloidosis, unspecified | CPT/HCPCS: 73630; 99213 ==

== ENCOUNTER 2025-01-19 03:18 | Emergency (ER) | payer MEDICARE, BC, SELFPAY ==
[2025-01-19 03:18] VITALS: BP 172/110; PULSE 65; RESP 22; TEMP 36.5; O2SAT 95; BMI 25.1
--- NOTE | 2025-01-19 03:27 | XRR_ITS ---
PROCEDURE INFORMATION: Exam: XR Chest Exam date and time: 01/19/2025 3:29 AM Age: 74 years old Clinical indication: Shortness of breath TECHNIQUE: Imaging protocol: Radiologic exam of the chest. Views: 1 view. COMPARISON: CR XR chest 2V* [id number] 01/25/2022 12:10 PM FINDINGS: Tubes, catheters and devices: There is placement pacemaker/defibrillator. Lungs: No consolidation. Pleural spaces: No significant visible pleural effusion. No pneumothorax. Heart/Mediastinum: Stable mild enlargement of cardiac silhouette. Bones/joints: No acute finding. XR/XR chest 1V portable [id number] IMPRESSION: Interval placement of pacemaker/defibrillator. No acute finding.
--- NOTE | 2025-01-19 03:27 | CTR_ITS ---
PROCEDURE INFORMATION: Exam: CT Head Without Contrast Exam date and time: 01/19/2025 3:29 AM Age: 74 years old Clinical indication: Altered mental status/memory loss Other procedure information: Additional Info: altered mental status of unknown etiology TECHNIQUE: Imaging protocol: Computed tomography of the head without contrast. Radiation optimization: All CT scans at this facility use at least one of these dose optimization techniques: automated exposure control; mA and/or kV adjustment per patient size (includes targeted exams where dose is matched to clinical indication); or iterative reconstruction. COMPARISON: CT head wo con* [id number] 08/06/2020 1:57 PM FINDINGS: Brain: There is no acute intracranial hemorrhage. There is lucency in the cerebral white matter, likely microvascular disease although non-specific. No evidence of mass. There is no mass effect or midline shift. Salas white differentiation is intact. There are no extra-axial fluid collections. Cerebral ventricles: The ventricles and sulci are enlarged, consistent with volume loss / atrophy. No hydrocephalus. Paranasal sinuses: Visualized sinuses are unremarkable. No fluid levels. Mastoid air cells: No significant mastoid effusion. Bones: Unremarkable. No acute fracture. Soft tissues: Unremarkable as visualized. Vasculature: There is vascular calcification. CT/CT head wo con* [id number] IMPRESSION: 1. No evidence of acute intracranial abnormality. No evidence of acute infarction, hemorrhage, or mass. 2. Atrophy and microvascular disease.
[2025-01-19] MEDS: ondansetron 2 mg/ML SDV 2 mL 4 MG IVP (04:00)
[2025-01-19 04:31] LABS: Basophils # 0.1 10^3/uL (0.0-0.1); Basophils % 0.4 %; Eosinophils % 0.2 %; Hematocrit 39.9 % (36-47); Lymphocytes # 1.6 10^3/uL (0.8-4.8); Lymphocytes % 12.6 %; Mean Corpuscular HGB Conc 33.3 g/dL (30-55); Mean Corpuscular Hemoglobin 30.4 pg (27-33); Mean Corpuscular Volume 91.3 fl (85-98); Mean Platelet Volume 9.7 fL (7.4-10.4); Monocytes # 0.6 10^3/uL (0.2-0.9); Monocytes % 4.8 %; Neutrophils # 10.22 10^3/uL (1.8-7.7); Neutrophils % 81.8 %; Nucleated Red Blood Cells % 0 %; Platelet Count 220 10^3/cmm (157-399); Red Blood Count 4.37 10^6/uL (3.85-5.65); Red Cell Distribution Width 13.6 % (12.1-15.1); White Blood Count 12.49 10^3/uL (3.29-11.43)
[2025-01-19 04:36] VITALS: BP 135/89; PULSE 86; RESP 16; O2SAT 91
--- NOTE | 2025-01-19 04:40 | ECG_ITS ---
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 Measurements Intervals [place] Rate: 64 P: 0 VT: 0 QRS: -81 QRSD: 144 T: 91 QT: 521 QTc: 538 Interpretive Statements ELECTRONIC VENTRICULAR PACEMAKER Compared to ECG 06/23/2021 00:58:09 Sinus tachycardia no longer present Myocardial infarct finding no longer present Electronically Signed On 01-19-2025 11:34:13 CDT by Mario Alberto Gonzales M.D. [email or web address]
[2025-01-19 04:53] LABS: Alanine Aminotransferase 17 U/L (0-33); Alkaline Phosphatase 101 U/L (35-105); Blood Urea Nitrogen 15 mg/dL (8-23); Carbon Dioxide 18 mmol/L (22-29); Chloride 97 mmol/L (98-107); Creatinine Clr Calc Pharmacy 65.0507; Globulin 3.3 g/dL (1.3-4.6); Glucose 183 mg/dL (65-115); Osmolality Calculated 280 mOsm/kg (285-295); Sodium 132 mmol/L (136-145); Total Bilirubin 1.3 mg/dL (0.15-1.2); Total Protein 7.3 g/dL (6.6-8.7)
[2025-01-19 05:03] LABS: Alcohol Level < 10 mg/dL (0-10); Anion Gap 21.1 (5-19); Aspartate Amino Transferase 27 U/L (0-32); Potassium 4.1 mmol/L (3.5-5.1)
--- NOTE | 2025-01-19 05:16 | W.ED.NAVMDI ---
Documented by User: Johnnie Carr MD 01/19/25 05:18 HPI - Nausea/Vomiting/Diarrhea General: Chief complaint: Nausea/Vomiting/Diarrhea Stated complaint: N/V Time Seen by Provider: 01/19/25 03:21 History of Present Illness: Patient is a generally well-appearing 74-year-old female from home seen for nausea, anxiety, and hyperventilation. En route to the hospital she received total 5 mg IV Phenergan which seems to have helped. She has not actually vomited but states that she feels like she is going to. Throughout our conversation she keeps her eyes closed and her senses trail off. She denies headache, visual disturbance, chest pain, shortness of breath, abdominal pain, dysuria, frequency, diarrhea, constipation associated with her nausea. She denies drinking alcohol or using drugs. She states that her shortness of breath and nausea are both much better after receiving Phenergan. She has no other acute complaints. Related Data Home Medications ?Medication ?Instructions ?Recorded ?Confirmed cetirizine 10 mg capsule (Zyrtec) 10 mg PO DAILY@0730 10/02/19 04/28/24 omeprazole magnesium 20 mg 20 mg PO DAILY@72910/02/19 04/28/24 tablet,delayed release (Prilosec OTC) apixaban 5 mg tablet (Eliquis) 5 mg PO BID 11/02/20 04/28/24 furosemide 20 mg tablet (Lasix) 10 mg PO QAM 11/02/20 04/28/24 spironolactone 25 mg tablet 50 mg PO DAILY@0730 11/02/20 04/28/24 lorazepam 0.5 mg tablet 0.5 mg PO .prn PRN 05/29/21 04/28/24 diphenoxylate-atropine 2.5 1 tab PO BID PRN 11/17/21 04/28/24 mg-0.025 mg tablet (Lomotil) midodrine 5 mg tablet 5 mg PO TID 11/17/21 04/28/24 gabapentin 100 mg capsule 100 mg PO DAILY 04/28/24 04/28/24 Previous Rx's ?Medication ?Instructions ?Recorded benzonatate 100 mg capsule 100 mg PO TID #30 caps 01/25/22 escitalopram oxalate 10 mg tablet 10 mg PO DAILY #90 tabs 01/25/22 (Lexapro) levothyroxine 100 mcg capsule 100 mcg PO DAILY@0730 #90 caps 03/29/22 nitrofurantoin 100 mg PO BID #10 caps 07/03/22 monohydrate/macrocrystals 100 mg capsule (Macrobid) ondansetron 4 mg oral soluble film 4 mg PO DAILY PRN nausea and 07/29/22 vomiting #10 ea bilateral Butt Balance brace #2 ea 04/28/24 promethazine 25 mg tablet 25 mg PO Q6H PRN nausea and 01/19/25 vomiting #10 tabs Allergies Allergy/AdvReac Type Severity Reaction Status Date / Time No Known Allergies Allergy Verified 04/28/24 15:10 PFS ED PFSH: Medical History Family history of breast cancer in sister Hodgkin lymphoma Thyroid cancer Hypertension GERD (gastroesophageal reflux disease) Hypothyroidism Amyloidosis Surgical History Hx of cholecystectomy Family History Sister Amyloidosis Cancer, Onset Age: 70 Sister Cancer, Onset Age: 60 Brother Amyloidosis Social History Smoking and tobacco/nicotine status: never used tobacco/nicotine Physical Exam Const: COMMON NORMALS: no acute distress, patient oriented x3 and alert HENMT: COMMON NORMALS: normocephalic and atraumatic HEAD & SCALP: normocephalic and atraumatic Eye: COMMON NORMALS: Equal, round and reactive pupils present, EOMs intact bilaterally and no scleral icterus PUPIL: Yes Equal, round and reactive pupils present Resp: COMMON NORMALS: normal respiratory effort and No retractions Cardio: COMMON NORMALS: regular rate, regular rhythm and No murmurs present (Cardio) RATE: regular rate RHYTHM: regular rhythm GI: COMMON NORMALS: Normal to inspection, nondistended, normoactive bowel sounds present, Soft to palpation and non-tender PALPATION: Yes Soft to palpation Neuro: COMMON NORMALS: patient oriented x3 SENSORIUM/ORIENTATION: Yes alert Skin: COMMON NORMALS: no rashes or lesions noted GENERAL SKIN EXAM: no rashes or lesions noted Course Vital Signs: Vital signs: Vital Signs Temperature 97.7 F 01/19/25 03:18 Pulse Rate 77 01/19/25 09:17 Respiratory Rate 16 01/19/25 04:36 Blood Pressure 143/61 01/19/25 09:17 Pulse Oximetry 92 01/19/25 09:17 Oxygen Delivery Me thod Room Air 01/19/25 07:00 MDM - Nausea/Vomiting/Diarrhea Medical Decision Making In summary, patient is a generally well-appearing 74-year-old female from home seen for nausea, anxiety, tachypnea, all of which are improving with symptomatic treatment. She received Phenergan en route to the hospital and Zofran here. EKG is reassuring. Labs, chest x-ray, CT brain showed nothing acute. I am uncertain of the etiology of her symptoms but do not suspect any other emergent process warranting further workup or hospitalization. She will be discharged home in stable and improved condition. Lab Data 01/19/25 04:28 01/19/25 04:28 Radiology Impressions Chest X-Ray 01/19/25 03:27 IMPRESSION: Interval placement of pacemaker/defibrillator. No acute finding. Head CT 01/19/25 03:27 IMPRESSION: 1. No evidence of acute intracranial abnormality. No evidence of acute infarction, hemorrhage, or mass. 2. Atrophy and microvascular disease. Laboratory Results WBC 12.49 10^3/uL (3.29-11.43) H 01/19/25 04:28 RBC 4.37 10^6/uL (3.85-5.65) 01/19/25 04:28 Hgb 13.30 g/dL (11.27-16.99) 01/19/25 04:28 Hct 39.9 % (36-47) 01/19/25 04:28 MCV 91.3 fl (85-98) 01/19/25 04:28 MCH 30.4 pg (27-33) 01/19/25 04:28 MCHC 33.3 g/dL (30-55) 01/19/25 04:28 RDW 13.6 % (12.1-15.1) 01/19/25 04:28 Plt Count 220 10^3/cmm (157-399) 01/19/25 04:28 MPV 9.7 fL (7.4-10.4) 01/19/25 04:28 Neut % (Auto) 81.8 % 01/19/25 04:28 Lymph % (Auto) 12.6 % 01/19/25 04:28 [place] % (Auto) 4.8 % 01/19/25 04:28 Eos % (Auto) 0.2 % 01/19/25 04:28 Baso % (Auto) 0.4 % 01/19/25 04:28 Neut # (Auto) 10.22 10^3/uL (1.8-7.7) H 01/19/25 04:28 Lymph # (Auto) 1.6 10^3/uL (0.8-4.8) 01/19/25 04:28 [place] # (Auto) 0.6 10^3/uL (0.2-0.9) 01/19/25 04:28 Eos # (Auto) 0.0 10^3/uL (0.0-0.8) 01/19/25 04:28 Baso # (Auto) 0.1 10^3/uL (0.0-0.1) 01/19/25 04:28 Nucleated RBC % (auto) 0 % 01/19/25 04:28 Nucleated RBCs # 0.0 /100WBC 01/19/25 04:28 Sodium 132 mmol/L (136-145) L 01/19/25 04:28 Potassium 4.1 mmol/L (3.5-5.1) 01/19/25 04:28 Chloride 97 mmol/L (98-107) L 01/19/25 04:28 Carbon Dioxide 18 mmol/L (22-29) L 01/19/25 04:28 Anion Gap 21.1 (5-19) H 01/19/25 04:28 BUN 15 mg/dL (8-23) 01/19/25 04:28 Creatinine 0.9 mg/dL (0.5-0.9) 01/19/25 04:28 GFR Calculation Not Reportable 01/19/25 04:28 Glucose 183 mg/dL (65-115) H 01/19/25 04:28 Calculated Osmolality 280 mOsm/kg (285-295) L 01/19/25 04:28 Calcium 9.0 mg/dL (8.5-10.5) 01/19/25 04:28 Total Bilirubin 1.3 mg/dL (0.15-1.2) H 01/19/25 04:28 AST 27 U/L (0-32) 01/19/25 04:28 ALT 17 U/L (0-33) 01/19/25 04:28 Alkaline Phosphatase 101 U/L (35-105) 01/19/25 04:28 Total Protein 7.3 g/dL (6.6-8.7) 01/19/25 04:28 Albumin 4.0 g/dL (3.5-5.2) 01/19/25 04:28 Globulin 3.3 g/dL (1.3-4.6) 01/19/25 04:28 Urine Color Yellow (Yellow) 01/19/25 06:30 Urine Appearance Clear (CLEAR) 01/19/25 06:30 Urine pH 7.0 (5-7) 01/19/25 06:30 Ur Specific [place] 1.025 (1.005-1.030) 01/19/25 06:30 Urine Protein 1+ (Negative) A 01/19/25 06:30 Urine Glucose (UA) Negative (Normal) 01/19/25 06:30 Urine Ketones 2+ (Negative) H 01/19/25 06:30 Urine Blood Negative (Negative) 01/19/25 06:30 Urine Nitrate Negative (Negative) 01/19/25 06:30 Urine Bilirubin Negative (Negative) 01/19/25 06:30 Urine Urobilinogen 1.0 mg/dL (Negative) 01/19/25 06:30 Ur Leukocyte Esterase Negative (Negative) 01/19/25 06:30 Urine RBC 6-10 /hpf (0-2) 01/19/25 06:30 Urine WBC 0-5 /hpf (0-5) 01/19/25 06:30 Ur Squamous Epith Cells 0-5 /hpf (0-5) 01/19/25 06:30 Amorphous Sediment Not Reportable 01/19/25 06:30 Urine Bacteria None seen /hpf (NONE) 01/19/25 06:30 Hyaline Casts 0.40 /lpf 01/19/25 06:30 Urine Mucus Trace /hpf 01/19/25 06:30 Urine Opiates Screen Negative ng/mL (Negative) 01/19/25 06:30 Ur Barbiturates Screen Negative ng/mL (Negative) 01/19/25 06:30 Ur Phencyclidine Scrn Negative ng/mL (Negative) 01/19/25 06:30 Ur Amphetamines Screen Negative ng/mL (Negative) 01/19/25 06:30 U Benzodiazepines Scrn Positive ng/mL (Negative) H 01/19/25 06:30 Urine Cocaine Screen Negative ng/mL (Negative) 01/19/25 06:30 U Marijuana (THC) Screen Negative ng/mL (Negative) 01/19/25 06:30 Ethyl Alcohol < 10 mg/dL (0-10) 01/19/25 04:28 EKG Data EKG 1: Interpretation: EKG: Time?0440?ventricularly paced rhythm, rate of 64, negative Sgarbossa criteria, no T wave inversions, QTc = 530 the T waves appear to finish well before the care home awa between QRS complexes. Discharge Plan Discharge Patient Disposition: Home Clinical Impression: Hyperventilation, Nausea & vomiting, Amyloidosis Condition: Stable Prescriptions: New promethazine 25 mg tablet 25 mg PO Q6H PRN (Reason: nausea and vomiting) Qty: 10 0RF No Action Eliquis 5 mg tablet 5 mg PO BID furosemide [Lasix] 20 mg tablet 10 mg PO QAM lorazepam 0.5 mg tablet 0.5 mg PO .prn PRN midodrine 5 mg tablet 5 mg PO TID Rx Instructions: do not give last dose of day after 6PM or within 4 hrs of bedtime diphenoxylate-atropine [Lomotil] 2.5-0.025 mg tablet 1 tab PO BID PRN escitalopram oxalate [Lexapro] 10 mg tablet 10 mg PO DAILY Qty: 90 3RF benzonatate 100 mg capsule 100 mg PO TID Qty: 30 0RF gabapentin 100 mg capsule 100 mg PO DAILY (DME) bilateral Butt Balance brace See Rx Instructions .Route .MEDSUPPLY Qty: 2 0RF Rx Instructions: As directed levothyroxine 100 mcg capsule 100 mcg PO DAILY@0730 Qty: 90 2RF Rx Instructions: SEE PHARMACY COMMENTS nitrofurantoin monohyd/m-cryst [Macrobid] 100 mg capsule 100 mg PO BID Qty: 10 0RF Rx Instructions: must administer with a meal/food omeprazole magnesium [Prilosec OTC] 20 mg Tablet,Delayed Release (Dr/Ec) 20 mg PO DAILY@729 Rx Instructions: SEE PHARMACY COMMENTS Zyrtec 10 mg Capsule 10 mg PO DAILY@729 Rx Instructions: SEE PHARMACY COMMENTS spironolactone 25 mg tablet 50 mg PO DAILY@729 Rx Instructions: SEE PHARMACY COMMENTS ondansetron 4 mg film 4 mg PO DAILY PRN (Reason: nausea and vomiting) Qty: 10 0RF Discharge Orders: Discharge ED (Routine); Ordered 01/19/25 Ordered By: Yayo Delgado Referrals: Art Burt MD [Primary Care Provider, Internal Medicine] Discharge Diet: Clear Liquid Discharge Activity: Increase activity as tolerated Patient Instructions: Opioid Safety, Pain Management Activity Restrictions/Additional Instructions: Thank you for choosing [facility] for your healthcare needs today. It is very important that you follow up as instructed or that you return to the Emergency Department should you have concerns or if your condition changes or worsens in any way. You were seen in the emergency room with nausea and vomiting and shortness of breath. When you first arrived he were having some hyperventilation. Your laboratory test did not show any clinically significant abnormalities. Will discharge you home with promethazine to take as needed for nausea and vomiting follow-up with your primary care doctor. 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[place] Fwd Documented by User: Yayo Delgado, 01/19/25 12:08 HPI - Nausea/Vomiting/Diarrhea General: Chief complaint: Nausea/Vomiting/Diarrhea Stated complaint: N/V Time Seen by Provider: 01/19/25 03:21 Related Data Home Medications ?Medication ?Instructions ?Recorded ?Confirmed cetirizine 10 mg capsule (Zyrtec) 10 mg PO DAILY@72910/02/19 04/28/24 omeprazole magnesium 20 mg 20 mg PO DAILY@72910/02/19 04/28/24 tablet,delayed release (Prilosec OTC) apixaban 5 mg tablet (Eliquis) 5 mg PO BID 11/02/20 04/28/24 furosemide 20 mg tablet (Lasix) 10 mg PO QAM 11/02/20 04/28/24 spironolactone 25 mg tablet 50 mg PO DAILY@0730 11/02/20 04/28/24 lorazepam 0.5 mg tablet 0.5 mg PO .prn PRN 05/29/21 04/28/24 diphenoxylate-atropine 2.5 1 tab PO BID PRN 11/17/21 04/28/24 mg-0.025 mg tablet (Lomotil) midodrine 5 mg tablet 5 mg PO TID 11/17/21 04/28/24 gabapentin 100 mg capsule 100 mg PO DAILY 04/28/24 04/28/24 Previous Rx's ?Medication ?Instructions ?Recorded benzonatate 100 mg capsule 100 mg PO TID #30 caps 01/25/22 escitalopram oxalate 10 mg tablet 10 mg PO DAILY #90 tabs 01/25/22 (Lexapro) levothyroxine 100 mcg capsule 100 mcg PO DAILY@0730 #90 caps 03/29/22 nitrofurantoin 100 mg PO BID #10 caps 07/03/22 monohydrate/macrocrystals 100 mg capsule (Macrobid) ondansetron 4 mg oral soluble film 4 mg PO DAILY PRN nausea and 07/29/22 vomiting #10 ea bilateral Butt Balance brace #2 ea 04/28/24 promethazine 25 mg tablet 25 mg PO Q6H PRN nausea and 01/19/25 vomiting #10 tabs Allergies Allergy/AdvReac Type Severity Reaction Status Date / Time No Known Allergies Allergy Verified 04/28/24 15:10 [facility] ED PFS: Medical History Family history of breast cancer in sister Hodgkin lymphoma Thyroid cancer Hypertension GERD (gastroesophageal reflux disease) Hypothyroidism Amyloidosis Surgical History Hx of cholecystectomy Family History Sister Amyloidosis Cancer, Onset Age: 70 Sister Cancer, Onset Age: 60 Brother Amyloidosis Social History Smoking and tobacco/nicotine status: never used tobacco/nicotine Course Vital Signs: Vital signs: Vital Signs Temperature 97.7 F 01/19/25 03:18 Pulse Rate 77 01/19/25 09:17 Respiratory Rate 16 01/19/25 04:36 Blood Pressure 143/61 01/19/25 09:17 Pulse Oximetry 92 01/19/25 09:17 Oxygen Delivery Me thod Room Air 01/19/25 07:00 MDM - Nausea/Vomiting/Diarrhea Medical Decision Making In summary, patient is a generally well-appearing 74-year-old female from home seen for nausea, anxiety, tachypnea, all of which are improving with symptomatic treatment. She received Phenergan en route to the hospital and Zofran here. EKG is reassuring. Labs, chest x-ray, CT brain showed nothing acute. I am uncertain of the etiology of her symptoms but do not suspect any other emergent process warranting further workup or hospitalization. She will be discharged home in stable and improved condition. Care assumed at change of shift patient given his fluid bolus antiemetics discharged home have her follow-up with her primary care doctor Lab Data 01/19/25 04:28 01/19/25 04:28 Radiology Impressions Chest X-Ray 01/19/25 03:27 IMPRESSION: Interval placement of pacemaker/defibrillator. No acute finding. Head CT 01/19/25 03:27 IMPRESSION: 1. No evidence of acute intracranial abnormality. No evidence of acute infarction, hemorrhage, or mass. 2. Atrophy and microvascular disease. Laboratory Results WBC 12.49 10^3/uL (3.29-11.43) H 01/19/25 04:28 RBC 4.37 10^6/uL (3.85-5.65) 01/19/25 04:28 Hgb 13.30 g/dL (11.27-16.99) 01/19/25 04:28 Hct 39.9 % (36-47) 01/19/25 04:28 MCV 91.3 fl (85-98) 01/19/25 04:28 MCH 30.4 pg (27-33) 01/19/25 04:28 MCHC 33.3 g/dL (30-55) 01/19/25 04:28 RDW 13.6 % (12.1-15.1) 01/19/25 04:28 Plt Count 220 10^3/cmm (157-399) 01/19/25 04:28 MPV 9.7 fL (7.4-10.4) 01/19/25 04:28 Neut % (Auto) 81.8 % 01/19/25 04:28 Lymph % (Auto) 12.6 % 01/19/25 04:28 [place] % (Auto) 4.8 % 01/19/25 04:28 Eos % (Auto) 0.2 % 01/19/25 04:28 Baso % (Auto) 0.4 % 01/19/25 04:28 Neut # (Auto) 10.22 10^3/uL (1.8-7.7) H 01/19/25 04:28 Lymph # (Auto) 1.6 10^3/uL (0.8-4.8) 01/19/25 04:28 [place] # (Auto) 0.6 10^3/uL (0.2-0.9) 01/19/25 04:28 Eos # (Auto) 0.0 10^3/uL (0.0-0.8) 01/19/25 04:28 Baso # (Auto) 0.1 10^3/uL (0.0-0.1) 01/19/25 04:28 Nucleated RBC % (auto) 0 % 01/19/25 04:28 Nucleated RBCs # 0.0 /100WBC 01/19/25 04:28 Sodium 132 mmol/L (136-145) L 01/19/25 04:28 Potassium 4.1 mmol/L (3.5-5.1) 01/19/25 04:28 Chloride 97 mmol/L (98-107) L 01/19/25 04:28 Carbon Dioxide 18 mmol/L (22-29) L 01/19/25 04:28 Anion Gap 21.1 (5-19) H 01/19/25 04:28 BUN 15 mg/dL (8-23) 01/19/25 04:28 Creatinine 0.9 mg/dL (0.5-0.9) 01/19/25 04:28 GFR Calculation Not Reportable 01/19/25 04:28 Glucose 183 mg/dL (65-115) H 01/19/25 04:28 Calculated Osmolality 280 mOsm/kg (285-295) L 01/19/25 04:28 Calcium 9.0 mg/dL (8.5-10.5) 01/19/25 04:28 Total Bilirubin 1.3 mg/dL (0.15-1.2) H 01/19/25 04:28 AST 27 U/L (0-32) 01/19/25 04:28 ALT 17 U/L (0-33) 01/19/25 04:28 Alkaline Phosphatase 101 U/L (35-105) 01/19/25 04:28 Total Protein 7.3 g/dL (6.6-8.7) 01/19/25 04:28 Albumin 4.0 g/dL (3.5-5.2) 01/19/25 04:28 Globulin 3.3 g/dL (1.3-4.6) 01/19/25 04:28 Urine Color Yellow (Yellow) 01/19/25 06:30 Urine Appearance Clear (CLEAR) 01/19/25 06:30 Urine pH 7.0 (5-7) 01/19/25 06:30 Ur Specific [place] 1.025 (1.005-1.030) 01/19/25 06:30 Urine Protein 1+ (Negative) A 01/19/25 06:30 Urine Glucose (UA) Negative (Normal) 01/19/25 06:30 Urine Ketones 2+ (Negative) H 01/19/25 06:30 Urine Blood Negative (Negative) 01/19/25 06:30 Urine Nitrate Negative (Negative) 01/19/25 06:30 Urine Bilirubin Negative (Negative) 01/19/25 06:30 Urine Urobilinogen 1.0 mg/dL (Negative) 01/19/25 06:30 Ur Leukocyte Esterase Negative (Negative) 01/19/25 06:30 Urine RBC 6-10 /hpf (0-2) 01/19/25 06:30 Urine WBC 0-5 /hpf (0-5) 01/19/25 06:30 Ur Squamous Epith Cells 0-5 /hpf (0-5) 01/19/25 06:30 Amorphous Sediment Not Reportable 01/19/25 06:30 Urine Bacteria None seen /hpf (NONE) 01/19/25 06:30 Hyaline Casts 0.40 /lpf 01/19/25 06:30 Urine Mucus Trace /hpf 01/19/25 06:30 Urine Opiates Screen Negative ng/mL (Negative) 01/19/25 06:30 Ur Barbiturates Screen Negative ng/mL (Negative) 01/19/25 06:30 Ur Phencyclidine Scrn Negative ng/mL (Negative) 01/19/25 06:30 Ur Amphetamines Screen Negative ng/mL (Negative) 01/19/25 06:30 U Benzodiazepines Scrn Positive ng/mL (Negative) H 01/19/25 06:30 Urine Cocaine Screen Negative ng/mL (Negative) 01/19/25 06:30 U Marijuana (THC) Screen Negative ng/mL (Negative) 01/19/25 06:30 Ethyl Alcohol < 10 mg/dL (0-10) 01/19/25 04:28 All radiology interpretation(s) finalized by discharge Discharge Plan Discharge Patient Disposition: Home Clinical Impression: Hyperventilation, Nausea & vomiting, Amyloidosis Condition: Stable Prescriptions: New promethazine 25 mg tablet 25 mg PO Q6H PRN (Reason: nausea and vomiting) Qty: 10 0RF No Action Eliquis 5 mg tablet 5 mg PO BID furosemide [Lasix] 20 mg tablet 10 mg PO QAM lorazepam 0.5 mg tablet 0.5 mg PO .prn PRN midodrine 5 mg tablet 5 mg PO TID Rx Instructions: do not give last dose of day after 6PM or within 4 hrs of bedtime diphenoxylate-atropine [Lomotil] 2.5-0.025 mg tablet 1 tab PO BID PRN escitalopram oxalate [Lexapro] 10 mg tablet 10 mg PO DAILY Qty: 90 3RF benzonatate 100 mg capsule 100 mg PO TID Qty: 30 0RF gabapentin 100 mg capsule 100 mg PO DAILY (DME) bilateral Butt Balance brace See Rx Instructions .Route .MEDSUPPLY Qty: 2 0RF Rx Instructions: As directed levothyroxine 100 mcg capsule 100 mcg PO DAILY@0730 Qty: 90 2RF Rx Instructions: SEE PHARMACY COMMENTS nitrofurantoin monohyd/m-cryst [Macrobid] 100 mg capsule 100 mg PO BID Qty: 10 0RF Rx Instructions: must administer with a meal/food omeprazole magnesium [Prilosec OTC] 20 mg Tablet,Delayed Release (Dr/Ec) 20 mg PO DAILY@0730 Rx Instructions: SEE PHARMACY COMMENTS Zyrtec 10 mg Capsule 10 mg PO DAILY@0730 Rx Instructions: SEE PHARMACY COMMENTS spironolactone 25 mg tablet 50 mg PO DAILY@0730 Rx Instructions: SEE PHARMACY COMMENTS ondansetron 4 mg film 4 mg PO DAILY PRN (Reason: nausea and vomiting) Qty: 10 0RF Discharge Orders: Discharge ED (Routine); Ordered 01/19/25 Ordered By: Yayo Delgado Referrals: Art Burt MD [Primary Care Provider, Internal Medicine] Discharge Diet: Clear Liquid Discharge Activity: Increase activity as tolerated Patient Instructions: Opioid Safety, Pain Management Activity Restrictions/Additional Instructions: Thank you for choosing [facility] for your healthcare needs today. It is very important that you follow up as instructed or that you return to the Emergency Department should you have concerns or if your condition changes or worsens in any way. You were seen in the emergency room with nausea and vomiting and shortness of breath. When you first arrived he were having some hyperventilation. Your laboratory test did not show any clinically significant abnormalities. Will discharge you home with promethazine to take as needed for nausea and vomiting follow-up with your primary care doctor. 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
--- NOTE | 2025-01-19 06:56 | PC.NURSE ---
ASSUMED CARE OF PATIENT FROM ZULEIMA SIMON AT 0656.
[2025-01-19 06:59] LABS: Bilirubin Urine Negative (Negative); Blood Urine Negative (Negative); Glucose Urine UA Negative (Normal); Ketones Urine 2+ (Negative); Leukocyte Esterase Urine Negative (Negative); Nitrate Urine Negative (Negative); Protein Urine 1+ (Negative); Specific Gravity, Urine 1.025 (1.005-1.030); Urine Appearance Clear (CLEAR); Urine Color Yellow (Yellow)
[2025-01-19 07:00] VITALS: BP 149/88; PULSE 73; O2SAT 92
[2025-01-19 07:03] LABS: Add Urine Microscopic? YES; Bacteria Urine None Seen /hpf; Squamous Epithelial Cell Urine 0-5 /hpf (0-5); WBC Urine 0-5 /hpf (0-5)
[2025-01-19 07:09] LABS: Amphetamines Screen Urine Negative (Negative); Barbiturates Screen Urine Negative (Negative); Benzodiazepines Screen Urine Positive (Negative); Cocaine Screen Urine Negative (Negative); Opiate Screen Urine Negative (Negative); PCP Screen Urine Negative (Negative); THC Screen Urine Negative (Negative)
[2025-01-19 07:13] LABS: UA Slide Review UA Slide Review Perf
[2025-01-19 07:14] LABS: Add Urine Culture? No; Mucus Urine TRACE /hpf
--- NOTE | 2025-01-19 07:37 | PC.NURSE ---
THIS NURSE WAS NOTIFIED THAT PT WAS STANDING UP IN THE ROOM. THIS NURSE ENTERED THE ROOM AND NOTICED BLOOD ON THE FLOOR AND ALL OVER PT. BOTH SIDE RAILS WERE UP AND PT WAS STANDING ON THE LEFT SIDE OF THE ROOM. UPON INSPECTION, PT IV WAS RIPPED OUT AND SITTING ON THE VISITOR CHAIR. THIS NURSE CLEANED PT UP AND PLACED PRESSURE DRESSING ON IV SITE. THIS NURSE ASKED PT WHAT SHE WAS DOING. PT STATED I AM JUST SO SICK. I NEED FLUIDS. THIS NURSE ASSISTED PT BACK TO BED AND HOOKED VITALS MONITOR BACK UP TO PT. PSA SITTING OUTSIDE ROOM.
[2025-01-19] MEDS: sodium chloride 0.9% 500 ML 999 ML IV (08:36)
[2025-01-19] MEDS: prochlorperazine 10 mg/2 mL Inj IVP (08:38)
[2025-01-19 09:17] VITALS: BP 143/61; PULSE 77; O2SAT 92
== END 2025-01-19 09:18 | disposition home or self-care (01) ==
PROVIDERS: Student in an Organized Health Care Education/Training Program; Emergency Provider Family Medicine; PCP Internal Medicine
DX: R06.4 Hyperventilation (principal); R11.2 Nausea with vomiting, unspecified; E85.9 Amyloidosis, unspecified; Z79.01 Long term (current) use of anticoagulants; I10 Essential (primary) hypertension; Z85.850 Personal history of malignant neoplasm of thyroid
CPT/HCPCS: 36415; 51701; 70450; 71045; 80053; 80306; 80307; 81001; 85025; 93005; 96361; 96374; 96375; 99285; J0780; J2405; J7040